=== PATIENT | male | born 1950 | race Caucasian/White ===

== ENCOUNTER 2020-02-18 11:10 | Outpatient (CLI) | payer OTHER, SELFPAY ==
--- NOTE | ~2020-02-18 | CT_ITS ---
EXAMINATION: CT abdomen pelvis wo/w con DATE: 02/18/2020 12:23 INDICATION: Hematuria, unspecified TECHNIQUE: Computed tomography (CT) of the abdomen and pelvis was performed without intravenous contr ast. CT of the abdomen and pelvis was then performed with a total of 130 mL Omnipaque 350 intravenous contrast using a double-bolus technique for simultaneous opacification of the renal parenchyma and r enal collecting system. The dose-length product (DLP) was 3148.92 mGy-cm. Automated exposure control and iterative reconstruction technique were employed. COMPARISON: None FINDINGS: There is mild atelectasis of the visualized lung bases. The heart size is normal. The liver , spleen, pancreas, and adrenal glands are normal. A stone is present in the nondistended gallbladder . Cysts of the kidneys measure up to 1.5 cm on the right and 2.5 cm on the left. No suspicious renal or urothelial lesion is identified. No stones are identified in the kidneys, ureters, or bladder. The re is no hydronephrosis or hydroureter. No pathologically enlarged abdominal or pelvic lymph nodes ar e identified. There is no free intraperitoneal gas or evidence of bowel obstruction. The appendix is normal. There is a fat-containing umbilical hernia. There is mild lumbar spondylosis. IMPRESSION: 1. No suspicious renal or urothelial lesion identified. Reviewed, dictated and finalized at location A.
[2020-02-18 11:54] LABS: Estimated Glomerular Filt Rate 55
== END 2020-02-18 11:11 | disposition home or self-care (01) ==
PROVIDERS: PCP Family Medicine; Visit Provider Family Medicine
DX: N28.1 Cyst of kidney, acquired (principal); R31.9 Hematuria, unspecified
CPT/HCPCS: 36415; 74178; Q9967

== ENCOUNTER 2020-03-11 11:21 | Outpatient (CLI) | payer OTHER, SELFPAY ==
--- NOTE | 2020-03-11 11:24 | ECG_ITS ---
Measurements Intervals [place] Rate: 76 P: 12 [place]: 161 QRS: 30 QRSD: 106 T: 11 QT: 369 QTc: 416 Interpretive Statements SINUS RHYTHM MINIMAL Q WAVES- INFERIOR LEADS BASELINE ARTIFACT- I, II, III, AVR, AVL BORDERLINE ECG Electronically Signed On 03-11-2020 12:36:32 CDT by Emil Willingham D.O.
== END 2020-03-11 11:22 | disposition home or self-care (01) ==
LOC: ANHSURGERY 11:24
PROVIDERS: PCP Family Medicine; Visit Provider Urology
DX: E78.2 Mixed hyperlipidemia (principal); R94.31 Abnormal electrocardiogram [ECG] [EKG]
CPT/HCPCS: 93005

== ENCOUNTER 2020-03-17 00:36 | Outpatient (CLI) | payer OTHER, SELFPAY ==
[2020-03-18 14:41] LABS: SARS-CoV-2 RNA PCR Negative
== END 2020-03-17 00:37 | disposition home or self-care (01) ==
LOC: ANHCOVIDDT 00:36
PROVIDERS: PCP Family Medicine; Visit Provider Urology
DX: Z01.812 Encounter for preprocedural laboratory examination (principal); Z11.59 Encounter for screening for other viral diseases
CPT/HCPCS: 87635; C9803; U0003

== ENCOUNTER 2020-03-19 02:43 | Day surgery (SDC) | payer OTHER, SELFPAY ==
[2020-03-06 15:19] VITALS: BMI 36.3
--- NOTE | 2020-03-13 12:51 | P.HP_ITS ---
History of Present Illness History of Present Illness Consent: Risks, benefits, and alternatives have been discussed and questions answered. Patient agrees to proceed with procedure. Chief complaint: Gross Hematuria Narrative: Gonzalo Norton is a 69 year old male Who recently underwent evaluation for hematuria. A CT scan of the abdomen and pelvis without contrast showed normal upper urinary tracts. 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 He is scheduled for TURBT followed by intravesical mitomycin instillation. Review of Systems Cardiovascular: Cardiovascular: Denies chest pain, Denies lightheadedness, Denies palpitations and Denies dyspnea Respiratory: Respiratory: Denies dyspnea Gastrointestinal: Gastrointestinal: Denies diarrhea, Denies nausea and Denies vomiting Genitourinary: Genitourinary: Denies hematuria and Denies dysuria Endocrine: Endocrine: Denies palpitations PMFSH Past Medical History Medical History Kidney cysts Mixed hyperlipidemia Family History Family History Father Family history of aortic aneurysm Family history of chronic obstructive pulmonary disease Mother Carcinoma of colon Family history of malignant neoplasm of uterus Social History Social History Smoking packs per day: 1.5 Smoking cigarettes per day: 30.0 Years smoked: 20 Smoking pack-years: 30.00 Smoking status: Former smoker Tobacco type: cigarettes Second hand tobacco smoke exposure: No Smoking end date: 08/21/89 Alcohol intake: current Drinks per week: 1 Substance use: never Substance use type: does not use Gender identity (if verbalized by the patient): Male Spiritual care concerns: No Meds Home Medications and Allergies Home Medications Medication Instructions Recorded Confirmed Type rosuvastatin 5 mg PO HS 03/06/20 03/06/20 History Allergies Allergy/AdvReac Type Severity Reaction Status Date / Time niacin AdvReac STOMACH Verified 03/06/20 15:02 CRAMPING Exam Const: General: no acute distress Resp: Effort & Inspection: normal respiratory effort GI: Inspection: non-distended GI Palp: No abdominal tenderness and No Guarding due to palpation present (GI) Auscultation: normal bowel sounds Assessment and Plan Assessment and plan (1) Bladder tumor: Code(s): D49.4 - Neoplasm of unspecified behavior of bladder Status: Acute Assessment and Plan: * TURBT followed by Mitomycin bladder instillation.
--- NOTE | 2020-03-18 09:57 | WPDANESEPPF ---
Anes - Initial Pre Proc Eval Procedure: Operation Date: 03/19/20 09:30 Proposed Procedures p Trans Urethral Resection Bladder Tumor With Mitomycin C Instillation - Morgan Moncada MD Date/Time: 03/18/20 09:57 Surgeon: Morgan Moncada MD Pre Op Diagnosis: Gross Hematuria Patient Data Age: 70 Gender: M Height: 1.8 m Weight: 117.99 kg Allergies Allergy/AdvReac Type Severity Reaction Status Date / Time No Known Allergies Allergy Verified 03/19/20 07:57 Home Medications Medication Instructions Recorded Confirmed Type rosuvastatin 5 mg PO HS 03/06/20 03/19/20 History Patient hx anesthesia problems: none Family hx anesthesia problems: none PMFSH Past Medical History Medical History Kidney cysts Mixed hyperlipidemia Family History Family History Father Family history of aortic aneurysm Family history of chronic obstructive pulmonary disease Mother Carcinoma of colon Family history of malignant neoplasm of uterus Social History Social History Smoking packs per day: 1.5 Smoking cigarettes per day: 30.0 Years smoked: 20 Smoking pack-years: 30.00 Smoking status: Former smoker Tobacco type: cigarettes Second hand tobacco smoke exposure: No Smoking end date: 08/21/89 Alcohol intake: current Drinks per week: 1 Substance use: never Substance use type: does not use Living arrangements: with family Gender identity (if verbalized by the patient): Male Spiritual care concerns: No Anes - Eval Final PreProcedure Day of Procedure 03/18/20 09:57 Patient weight: obese Heart: regular rate and rhythm Lungs: clear to auscultation and normal air movement Airway: Mallampati scale class II Neurological: alert and oriented Last oral intake: >/= 8 hours ASA classification: III Emergent: no Anesthetic plan: proceed Anesthesia type and monitoring: general LMA and standard monitoring Informed Consent: The patient's anesthetic plan and its attendant risks and benefits were discussed with the patient/family/POA. Questions were solicited and answers provided to the satisfaction of the patient/family/POA.
[2020-03-19] VITALS (9 sets, daily range): BP systolic 109–151; BP diastolic 65–97; PULSE 64–88; RESP 10–20; TEMP 36.5–36.6; O2SAT 94–97
--- NOTE | 2020-03-19 06:55 | WPDHPUPDATE1 ---
History and Physical Update Update Date/Time: 03/19/20 06:55 History and Physical has been reviewed, including an updated exam of the patient. There are NO changes in the patient's condition. Risks, benefits, and alternatives have been discussed and questions answered. Patient agrees to proceed with procedure.
[2020-03-19] MEDS: LACTATED RINGERS 1,000 ML 30 ML IV CONT (08:10)
--- NOTE | 2020-03-19 09:49 | PM.PROC ---
Procedure Note - Detailed Date of procedure: 03/19/20 Pre-op diagnosis: Gross Hematuria Post-op diagnosis: same Procedure performed: TURBT (medium, 3-4cm) Description of procedure: The patient was brought to the operative suite where he is prepped and draped in a routine sterile fashion while in the dorsal lithotomy position. This is done after the uneventful administration of systemic sedation. 2% Xylocaine jelly is introduced intraurethrally and allowed to stand for an appropriate period of time. A 24F resectoscope sheath was placed in the bladder and the bladder is circumferentially inspected carefully. He has a single papillary transitional cell carcinoma in the right posterior lateral bladder wall, just lateral to the ureteral orifice. This area is resected in its entirety with an attempt made to include detrusor muscle for pathological evaluation of invasion. The base and periphery of this resected side is cauterized with a loop electrode. This was all done with care to avoid any resection or cautery to the right ureteral orificeThe bladder is emptied and the resectoscope was removed. The patient is taken to the recovery room having tolerated this procedure well. Anesthesia: GLMA Surgeon: Morgan Moncada MD Conference Manager: None Estimated blood loss (mL): 0 Drains: Yes (18F Moser) Packing: No Pathology: yes Complications: No immediate complications Condition: stable Disposition: PACU
[2020-03-19] MEDS: ceFAZolin 3 GM/D5W 100 ML 100 ML IVPB (09:54)
--- NOTE | 2020-03-19 10:28 | PM.PROC ---
Procedure Note - Detailed Date of procedure: 03/19/20 Pre-op diagnosis: Gross Hematuria Post-op diagnosis: same Procedure performed: Mitomycin-C instillation Description of procedure: With the patient in the supine position, a 16F Moser catheter is placed using sterile technique. Using a protective facemask, gown and double layer of gloves Mitomycin 40mg in 50cc saline is administered through the catheter/into the bladder. The catheter is then plugged. Patient was instructed to lie supine x20min, then to roll both the left and right x20 min. each. Total dwell time will be 60 min., after which the bladder will be drained and catheter removed. Anesthesia: local Surgeon: Morgan Moncada MD Estimated blood loss (mL): 0 Drains: Yes (18F Moser) Packing: No Pathology: none sent Complications: No immediate complications Condition: stable Disposition: PACU
--- NOTE | 2020-03-19 11:04 | SUR.PHASEI ---
1030 PT INSTRUCTED ABOUT TURNINGX3 FOR 20 MINUTES AT A TIME. PT OK WITH THIS. PETTY CATH CLAMPED FOR AN HOUR, THEN WILL UNCLAMP TO DRAIN THE BLADDER. AFTER BLADDER DRAINED WILL INSTILL 150ML N/S IN TO BLADDER WITH PETTY IN THEN WILL REMOVE PETTY AND TAKE PT TO OP RECOVERY TO USE THE BATHROOM TO EMPTY BLADDER PER DR BISHOP INSTRUCTIONS.
== END 2020-03-19 12:28 | disposition home or self-care (01) ==
PROVIDERS: PCP Family Medicine; Visit Provider Urology
PROC: 0TBB8ZZ Excision of Bladder, Via Natural or Artificial Opening Endoscopic (ICD-10-PCS; CPT 52235; principal; 2020-03-19 09:30)
DX: C67.2 Malignant neoplasm of lateral wall of bladder (principal); E78.2 Mixed hyperlipidemia; E66.9 Obesity, unspecified; Z68.36 Body mass index [BMI] 36.0-36.9, adult; Z87.891 Personal history of nicotine dependence; Z79.891 Long term (current) use of opiate analgesic; Z79.899 Other long term (current) drug therapy
CPT/HCPCS: 52235; 51720; 87635; 88305; 88307; A9270; C9803; J0690; J1100; J2405; J2704; J3010; J7120; J9280; U0003

== ENCOUNTER 2020-07-27 01:43 | Outpatient (CLI) | payer OTHER, SELFPAY ==
[2020-07-27 18:53] LABS: SARS-CoV-2 RNA PCR Negative
== END 2020-07-27 01:44 | disposition home or self-care (01) ==
LOC: ANHCOVIDDT 01:43
PROVIDERS: PCP Family Medicine; Visit Provider Urology
DX: Z01.818 Encounter for other preprocedural examination (principal); Z20.828 Contact with and (suspected) exposure to other viral communicable diseases
CPT/HCPCS: 87635; C9803; U0003

== ENCOUNTER 2020-07-30 00:37 | Day surgery (SDC) | payer OTHER, SELFPAY ==
[2020-07-23 14:21] VITALS: BMI 37.0
[2020-07-30] VITALS (11 sets, daily range): BP systolic 113–148; BP diastolic 67–98; PULSE 77–92; RESP 12–14; TEMP 36.4–36.7; O2SAT 91–98
--- NOTE | 2020-07-30 06:53 | WPDHPUPDATE1 ---
History and Physical Update Update Date/Time: 07/30/20 06:53 History and Physical has been reviewed, including an updated exam of the patient. There are NO changes in the patient's condition. Risks, benefits, and alternatives have been discussed and questions answered. Patient agrees to proceed with procedure.
--- NOTE | 2020-07-30 08:32 | WPDANESEPPF ---
Anes - Initial Pre Proc Eval Procedure: Operation Date: 07/30/20 10:30 Proposed Procedures p Trans Urethral Resection Bladder Tumor with Mitomycin C - Morgan Moncada MD Date/Time: 07/30/20 08:32 Surgeon: Morgan Moncada MD Pre Op Diagnosis: bladder CA Patient Data Age: 70 Gender: M Height: 5 ft 11 in Weight: 124.3 kg Last Vital Signs Temp 98.1 F 07/30/20 08:20 Pulse 80 07/30/20 08:20 Resp 14 07/30/20 08:20 BP 148/80 H 07/30/20 08:20 Pulse Ox 98 07/30/20 08:20 Allergies Allergy/AdvReac Type Severity Reaction Status Date / Time No Known Allergies Allergy Verified 07/30/20 08:22 Home Medications Medication Instructions Recorded Confirmed Type rosuvastatin 5 mg tablet 5 mg PO HS #90 tablet 06/08/20 07/30/20 Rx Patient hx anesthesia problems: none Family hx anesthesia problems: none PMFSH Past Medical History Medical History (Updated 03/19/20 @ 07:59 by Augusto Boothe DO) Bladder tumor Kidney cysts Mixed hyperlipidemia Family History Family History Father Family history of aortic aneurysm Family history of chronic obstructive pulmonary disease Mother Carcinoma of colon Family history of malignant neoplasm of uterus Social History Social History Smoking packs per day: 1.5 Smoking cigarettes per day: 30.0 Years smoked: 20 Smoking pack-years: 30.00 Smoking status: Former smoker Tobacco type: cigarettes Second hand tobacco smoke exposure: No Smoking end date: 08/21/89 Additional smoking assessment comments: STATES 1 1/2PK/DAY/20YRS/QUIT 1989 Alcohol intake: current Drinks per week: 1 Substance use: never Substance use type: does not use Living arrangements: with family Gender identity (if verbalized by the patient): Male Spiritual care concerns: No Anes - Eval Final PreProcedure Day of Procedure 07/30/20 08:32 Patient weight: obese Heart: regular rate and rhythm Lungs: clear to auscultation Airway: Mallampati scale Last oral intake: >/= 8 hours ASA classification: III Emergent: no Anesthetic plan: proceed Anesthesia type and monitoring: general LMA and standard monitoring Informed Consent: The patient's anesthetic plan and its attendant risks and benefits were discussed with the patient/family/POA. Questions were solicited and answers provided to the satisfaction of the patient/family/POA.
[2020-07-30] MEDS: LACTATED RINGERS 1,000 ML 30 ML IV CONT (08:41)
[2020-07-30] MEDS: ceFAZolin 3 GM/D5W 100 ML 100 ML IVPB (08:56)
[2020-07-30] MEDS: LIDOCAINE HCL 2% GEL UROJET 10 ML PKG MUCOUS MEM (09:13)
--- NOTE | 2020-07-30 09:23 | P.OP_ITS ---
Procedure Note - Detailed Date of procedure: 07/30/20 Pre-op diagnosis: bladder CA Post-op diagnosis: same Procedure performed: TURBT (small, 1-1.5cm) Description of procedure: The patient was brought to the operative suite where [he/she] is prepped and draped in a routine sterile fashion while in the dorsal lithotomy position. This is done after the uneventful administration of a general LMA anesthetic. 2% Xylocaine jelly is introduced intraurethrally and allowed to stand for an appropriate period of time. A 24F resectoscope sheath was placed in the bladder and the bladder is circumferentially inspected carefully. He has a an area of abnormal urothelium in the right posterior- lateral bladder wall that may/may not be a carcinoma. This area is resected in its entirety with an attempt made to include detrusor muscle for pathological evaluation of invasion. The base and periphery of this resected side is cauterized with a loop electrode. The bladder is emptied and the resectoscope was removed. The patient is taken to the recovery room having tolerated this procedure well. Anesthesia: GLMA Surgeon: Morgan Moncada MD Estimated blood loss (mL): 0 Drains: No Packing: No Pathology: yes (Bladder tumor) Complications: No immediate complications Condition: stable Disposition: PACU
--- NOTE | 2020-07-30 09:27 | PM.PROC ---
Procedure Note - Detailed Date of procedure: 07/30/20 Pre-op diagnosis: bladder CA Post-op diagnosis: same Procedure performed: Mitomycin-C instillation Description of procedure: With the patient in the supine position, a 16F Moser catheter is placed using sterile technique. Using a protective facemask, gown and double layer of gloves Mitomycin-C 40mg in 60cc saline is administered through the catheter/into the bladder. The catheter is then plugged. Patient was instructed to lie supine x20min, then to roll both the left and right x20 min. each. Total dwell time will be 60 min., after which the bladder will be drained and catheter removed. Anesthesia: none Surgeon: Morgan Moncada MD Estimated blood loss (mL): 0 Drains: No Packing: No Pathology: none sent Complications: No immediate complications Condition: stable Disposition: PACU
[2020-07-30] MEDS: fentaNYL CITRATE INJ (*CRX) 100 MCG/2 ML VIAL 25 MCG IV PUSH ×2 (10:04→10:07)
--- NOTE | 2020-07-30 14:46 | SUR.PHASEII ---
1100 PT URINATED WITHOUT ISSUE 200 ML
== END 2020-07-30 12:15 | disposition home or self-care (01) ==
PROVIDERS: PCP Family Medicine; Visit Provider Urology
PROC: 0TBB8ZZ Excision of Bladder, Via Natural or Artificial Opening Endoscopic (ICD-10-PCS; CPT 52234; principal; 2020-07-30 10:30)
DX: N30.20 Other chronic cystitis without hematuria (principal); Z85.51 Personal history of malignant neoplasm of bladder; E78.2 Mixed hyperlipidemia; Z87.891 Personal history of nicotine dependence; E66.9 Obesity, unspecified; Z68.38 Body mass index [BMI] 38.0-38.9, adult
CPT/HCPCS: 52234; 51720; 88305; J0690; J2250; J3010; J7120; J9280

== ENCOUNTER 2020-12-08 16:37 | Outpatient (CLI) | payer OTHER, SELFPAY ==
--- NOTE | ~2020-12-08 | XR_ITS ---
EXAMINATION: XR lumbar spine 2-3V DATE: 12/08/2020 16:56 INDICATION: Low back pain. TECHNIQUE: 3 views of lumbar spine were obtained. COMPARISON: CT abdomen and pelvis 02/18/2020 FINDINGS: Bone alignment is normal. Vertebral body heights are normal. There are endplate osteophytes at all levels. Intervertebral disc heights are normal. There is multilevel facet joint osteoarthriti s, severe on the left at L3-L4. IMPRESSION: 1. Mild lumbar spondylosis. Reviewed, dictated and finalized at location B. IMPRESSION: 1. Mild lumbar spondylosis.
== END 2020-12-08 16:38 | disposition home or self-care (01) ==
PROVIDERS: PCP Family Medicine; Visit Provider Family Medicine
DX: M47.816 Spondylosis without myelopathy or radiculopathy, lumbar region (principal)
CPT/HCPCS: 72100

== ENCOUNTER 2022-01-28 00:15 | Day surgery (SDC) | payer OTHER, SELFPAY ==
[2022-01-06 13:03] VITALS: BMI 40.1
[2022-01-28 07:49] VITALS: BP 169/93; PULSE 84; RESP 18; TEMP 36.6; O2SAT 97
[2022-01-28] MEDS: LACTATED RINGERS 1,000 ML 150 ML IV CONT (08:01)
--- NOTE | 2022-01-28 08:25 | P.PNAN_ITS ---
Anes - Initial Pre Proc Eval Procedure: Operation Date: 01/28/22 08:45 Proposed Procedures p Screening Colonoscopy - Isidoro Estevez MD Date/Time: 01/28/22 08:25 Surgeon: Isidoro Estevez MD Pre Op Diagnosis: hx of colon polyps Patient Data Age: 71 Gender: M Height: 1.78 m Weight: 127.3 kg Last Vital Signs Temp 97.8 F 01/28/22 07:49 Pulse 84 01/28/22 07:49 Resp 18 01/28/22 07:49 BP 169/93 H 01/28/22 07:49 Pulse Ox 97 01/28/22 07:49 O2 Del Method Room Air 01/28/22 07:49 Allergies Allergy/AdvReac Type Severity Reaction Status Date / Time No Known Allergies Allergy Verified 01/28/22 07:47 Home Medications Medication Instructions Recorded Confirmed Type rosuvastatin 5 mg tablet 5 mg PO DAILY 01/06/22 01/06/22 History Patient hx anesthesia problems: none Family hx anesthesia problems: none Results Review: All pre-operative results and documents have been reviewed as part of the pre- operative evaluation. [facility] Past Medical History Medical History Bladder cancer Bladder tumor Fatty liver disease, nonalcoholic History of tobacco abuse Kidney cysts Mixed hyperlipidemia Obesity due to excess calories Family History Family History Father Family history of aortic aneurysm Family history of chronic obstructive pulmonary disease Shingles Mother Carcinoma of colon Family history of malignant neoplasm of uterus Social History Social History (Updated 12/20/21 @ 11:03 by Jessica Malcolm) Social History: Smoking packs per day: 1.5 Smoking cigarettes per day: 30.0 Years smoked: 20 Smoking pack-years: 30.00 Smoking status: Former smoker Tobacco type: cigarettes Second hand tobacco smoke exposure: No Smoking end date: 08/21/89 Additional smoking assessment comments: STATES 1 1/2PK/DAY/20YRS/QUIT 1989 Alcohol intake: current Drinks per week: 1 Alcohol use details: 1 drink monthly Substance use: never Substance use type: does not use Living arrangements: with family Gender identity (if verbalized by the patient): Male Sexual Orientation (if Verbalized by the Patient): Straight or Heterosexual Spiritual care concerns: No Anes - Eval Final PreProcedure Day of Procedure 01/28/22 08:25 Patient weight: morbidly obese Heart: regular rate and rhythm Lungs: clear to auscultation Airway: Mallampati scale class III Neurological: alert and oriented Last oral intake: >/= 8 hours ASA classification: III Emergent: no Anesthetic plan: proceed Anesthesia type and monitoring: general GIVS and standard monitoring Results Review: All pre-operative results and documents have been reviewed as part of the pre- operative evaluation. Informed Consent: The patient's anesthetic plan and its attendant risks and benefits were di scussed with the patient/family/POA. Questions were solicited and answers provided to the satisfaction of the patient/family/POA.
--- NOTE | 2022-01-28 08:47 | PM.IMHP ---
H&P: HPI History of Present Illness Date/Time: 01/28/22 08:47 Chief Complaint: History of colon polyps. Narrative: This is a 71-year-old white male patient referred for screening colonoscopy. Patient has a prior history of colon polyps. Previous colonoscopy 2016 and 2011. Patient states that his current weight appetite and bowel movements are normal. He denies abdominal pain. He has had no bleeding. Family history noncontributory. Patient does have a history of bladder cancer diagnosed and treated 2019. Review of Systems Review of Systems: Review of systems noncontributory. [facility] Past Medical History Medical History Bladder cancer Bladder tumor Fatty liver disease, nonalcoholic History of tobacco abuse Kidney cysts Mixed hyperlipidemia Obesity due to excess calories Family History Family History Father Family history of aortic aneurysm Family history of chronic obstructive pulmonary disease Shingles Mother Carcinoma of colon Family history of malignant neoplasm of uterus Social History Social History (Updated 12/20/21 @ 11:03 by Jessica Malcolm) Social History: Smoking packs per day: 1.5 Smoking cigarettes per day: 30.0 Years smoked: 20 Smoking pack-years: 30.00 Smoking status: Former smoker Tobacco type: cigarettes Second hand tobacco smoke exposure: No Smoking end date: 08/21/89 Additional smoking assessment comments: STATES 1 1/2PK/DAY/20YRS/QUIT 1989 Alcohol intake: current Drinks per week: 1 Alcohol use details: 1 drink monthly Substance use: never Substance use type: does not use Living arrangements: with family Gender identity (if verbalized by the patient): Male Sexual Orientation (if Verbalized by the Patient): Straight or Heterosexual Spiritual care concerns: No Meds Home Medications and Allergies Home Medications Medication Instructions Recorded Confirmed Type rosuvastatin 5 mg tablet 5 mg PO DAILY 01/06/22 01/06/22 History Allergies Allergy/AdvReac Type Severity Reaction Status Date / Time No Known Allergies Allergy Verified 01/28/22 07:47 Vital Signs Vital Signs - 24 hr 01/28/22 07:49 Temperature 97.8 F Pulse Rate 84 Respiratory Rate 18 Blood Pressure 169/93 H Pulse Oximetry 97 Oxygen Delivery Room Air Exam Narrative: Physical exam reveals patient to be alert. Vital signs stable. HEENT exam is unremarkable. Patient is anicteric. Lungs are clear to auscultation and percussion. Heart is without murmur or extra sounds. Abdominal exam bowel sounds are present soft nontender with no organomegaly. Digital external rectal exam is normal. Assessment and Plan Assessment and plan (1) History of colon polyps: Code(s): Z86.010 - Personal history of colonic polyps Status: Acute Assessment and Plan: Patient has a prior history of colon polyps. Plan is for continued surveillance colonoscopy. A 5 year intervals. Further recommendations will be given after endoscopy.
[2022-01-28 09:13] VITALS: BP 99/60; PULSE 80; RESP 15; O2SAT 94
[2022-01-28 09:23] VITALS: BP 99/65; PULSE 70; RESP 18; O2SAT 94
[2022-01-28 09:33] VITALS: BP 125/71; PULSE 76; RESP 17; O2SAT 96
== END 2022-01-28 09:44 | disposition home or self-care (01) ==
PROVIDERS: PCP Family Medicine; Visit Provider Internal Medicine Gastroenterology
PROC: 0DJD8ZZ Inspection of Lower Intestinal Tract, Via Natural or Artificial Opening Endoscopic (ICD-10-PCS; CPT 45378; principal; 2022-01-28 08:45)
DX: Z12.11 Encounter for screening for malignant neoplasm of colon (principal); D12.0 Benign neoplasm of cecum; D12.3 Benign neoplasm of transverse colon; K63.5 Polyp of colon; K64.8 Other hemorrhoids; K57.30 Diverticulosis of large intestine without perforation or abscess without bleeding; K76.0 Fatty (change of) liver, not elsewhere classified; N28.1 Cyst of kidney, acquired; E78.2 Mixed hyperlipidemia; Z87.891 Personal history of nicotine dependence; Z85.51 Personal history of malignant neoplasm of bladder; E66.9 Obesity, unspecified; Z68.41 Body mass index [BMI] 40.0-44.9, adult
CPT/HCPCS: 45385; 88305; J2001; J2704; J7120

== ENCOUNTER 2022-08-05 14:22 | Outpatient (CLI) | payer OTHER, SELFPAY ==
--- NOTE | ~2022-08-05 | CT_ITS ---
CT of the Abdomen and Pelvis: Indication: Malignant tumor of urinary bladder Technique: 2.5 mm axial scans were obtained through the abdomen and pelvis prior to and following in travenous administration of 130 cc of Omnipaque 350. Dose reduction technique was used on this scan b y utilizing automated exposure control and iterative reconstruction technique. The dose-length produc t (DLP) was 3036.18 mGy-cm. COMPARISON: 02/18/2020 Findings: Scans through the lung bases are unremarkable. The liver, spleen, pancreas, and adrenal glands are within normal limits. Gallstones are present, unc hanged. Bilateral renal cysts are present. No hydronephrosis. No evidence of aortic aneurysm. No lym phadenopathy. No bowel obstruction or bowel wall thickening. There is no evidence to suggest acute appendicitis. Th ere is sigmoid and descending colonic diverticulosis. Images through the pelvis were performed. Small amount of air in the urinary bladder, which is otherw ise unremarkable. No definite wall thickening or mass lesion appreciated. Prostate gland mildly enlar ged. Impression: No suspicious urinary bladder lesion/mass identified. Small amount of air in the urinary bladder. Cor relate for antigenic air. Cholelithiasis. Reviewed, dictated and finalized at location [] FF COUNSEL Impression: No suspicious urinary bladder lesion/mass identified. Small amount of air in th e urinary bladder. Correlate for antigenic air. Cholelithiasis.
[2022-08-05 15:06] LABS: Estimated Glomerular Filt Rate 60
== END 2022-08-05 14:23 | disposition home or self-care (01) ==
PROVIDERS: PCP Family Medicine; Visit Provider Urology
DX: C67.0 Malignant neoplasm of trigone of bladder (principal); K80.20 Calculus of gallbladder without cholecystitis without obstruction
CPT/HCPCS: 74178; Q9967

== ENCOUNTER 2024-05-01 11:36 | Outpatient (CLI) | payer OTHER, SELFPAY ==
--- NOTE | ~2024-05-01 | XR_ITS ---
AP and lateral views of the left hip Clinical history: Pain Findings: No acute fracture or dislocation is seen. Osseous alignment is anatomic. Left hip joint is preserved. Soft tissues are unremarkable. Impression: No significant abnormality is seen. Reviewed, dictated and finalized at location M. Impression: No significant abnormality is seen.
== END 2024-05-01 11:37 | disposition home or self-care (01) ==
LOC: ANHIMG 11:40
PROVIDERS: PCP Family Medicine; Visit Provider Physician Assistant
DX: M25.552 Pain in left hip (principal)
CPT/HCPCS: 73502

== ENCOUNTER 2024-05-22 07:28 | Outpatient (CLI) | payer OTHER, SELFPAY ==
--- NOTE | ~2024-05-22 | CT_ITS ---
CT of the Abdomen and Pelvis: Indication: Bladder cancer Technique: 2.5 mm axial scans were obtained through the abdomen and pelvis prior to and following in travenous administration of 130 cc of Omnipaque 350. Dose reduction technique was used on this scan b y utilizing automated exposure control and iterative reconstruction technique. The dose-length produc t (DLP) was 2911.94 mGy-cm. COMPARISON: 08/05/2022 Findings: Scans through the lung bases are unremarkable. The liver, spleen, pancreas, and adrenal glands are within normal limits. Bilateral renal cysts prese nt. Probable gallstone present. There are atherosclerotic calcifications of the aorta. No lymphadeno [place]. No bowel obstruction or bowel wall thickening. There is extensive colonic diverticulosis. Small fat-c ontaining umbilical hernia noted. Images through the pelvis were performed. Urinary bladder unremarkable. Prostate gland mildly enlarge d. Impression: No evidence for active malignancy or metastatic disease. Urinary bladder appears unremarkable. Cholelithiasis. Reviewed, dictated and finalized at location M. Impression: No evidence for active malignancy or metastatic disease. Urinary bladder appear s unremarkable. Cholelithiasis.
== END 2024-05-22 07:29 | disposition home or self-care (01) ==
PROVIDERS: PCP Family Medicine; Visit Provider Urology
DX: K80.20 Calculus of gallbladder without cholecystitis without obstruction (principal); C67.0 Malignant neoplasm of trigone of bladder
CPT/HCPCS: 74178; Q9967

== ENCOUNTER 2025-04-28 08:27 | Outpatient (CLI) | payer OTHER, SELFPAY ==
--- NOTE | 2025-04-28 08:34 | ECG_ITS ---
Test Date: 2025-04-28 08:39:11 Measurements Intervals Sherman Rate: 79 P: 56 MA: 172 QRS: 29 QRSD: 105 T: 30 QT: 359 QTc: 412 Interpretive Statements SINUS RHYTHM No previous ECG available for comparison Electronically Signed On 04-28-2025 10:38:41 CDT by Gavino De La Cruz M.D.
== END 2025-04-28 08:28 | disposition home or self-care (01) ==
LOC: ANHSURGERY 08:31
PROVIDERS: PCP Family Medicine; Visit Provider Urology
DX: E78.2 Mixed hyperlipidemia (principal); Z01.818 Encounter for other preprocedural examination
CPT/HCPCS: 93005

== ENCOUNTER 2025-05-08 00:55 | Day surgery (SDC) | payer OTHER, SELFPAY ==
--- NOTE | 2025-04-25 09:37 | PC.NURSE ---
Report to the Outpatient Waiting Room, entrance under the green pavilion located off [facility], at time _11:45 AM on date __05/08/25 . Planned Procedure Time: __1:45 PM .? Time changes happen often and if your time is changed the preop area will call you the afternoon before. - You and your visitor will be asked to self-screen and do not enter if you have any COVID symptoms. Please call surgeon if you need to reschedule. - A mask is optional within the hospital at this time. Patients may have clear liquids (water, carbonated beverages, clear teas, apple juice) until 3 hours prior to surgery( 10:45 AM) with a maximum of 20 ounces. - No food from midnight until time of surgery and no smoking, or chewing tobacco (or any form of nicotine). No chewing gum, candy or mints. - Take only the following medications with a SIP of water on the morning of surgery: NONE DO NOT STOP ANY OF YOUR OTHER PRESCRIPTION MEDICATIONS PRIOR TO SURGERY EXCEPT THE FOLLOWING Hold all vitamins and supplements for 3 days per anesthesiologist. Medications to discontinue per physician NONE Please no make-up, nail dutch, hairspray, perfume, deodorant, or body powder the day of surgery.? No jewelry (including any body piercings) or valuables the day of surgery, leave them at home.? Please take a shower or bath the night before, or the morning of, surgery with an antibacterial soap.? Wear comfortable, loose fitting clothing.? Children are encouraged to wear pajamas. - Jewelry must be removed prior to entering the operating room.? Rings and piercings that are not removed may be cut off. - The hospital will not accept responsibility for valuables.? - Please leave all valuables, including medications, at home the day of surgery. If you are going home after surgery, a licensed driver engineer must drive you home.? - NO public transportation without another adult if you receive anesthesia. - We recommend that an adult stay with you for 24 hours following discharge. - We also recommend that you do not drive, make important decision, drink alcoholic beverages, or take any drugs that were not prescribed by your health care provider for at least 24 hours after your discharge time. For Pediatric surgeries, we recommend two adults accompany the child home. Follow any additional instructions given to you from your surgeon. Telephone instructions given to __PATIENT and asked if any additional questions and then verbalized understanding. Patient advised to call surgeon office or pre surgery nurse liaison [phone] if any additional questions.
[2025-04-25 09:49] VITALS: BMI 38.7
[2025-05-08] VITALS (17 sets, daily range): BP systolic 143–195; BP diastolic 87–111; PULSE 71–94; RESP 14–17; TEMP 36.3–36.9; O2SAT 93–100; BMI 39.4
--- NOTE | ~2025-05-08 | XR_ITS ---
EXAMINATION: XR retrograde pyelogram BI DATE: 05/08/2025 13:38 INDICATION: Bilateral retrograde pyelograms TECHNIQUE: 125 fluoroscopic images of the abdomen and pelvis were obtained during procedure performed by Dr. Moncada. Radiologist was not present for the imaging or procedure. The amount of fluoroscopy time used during this procedure was 2.2 minutes. Total DAP was 4.97 mGym^2. COMPARISON: CT dated 05/22/2024 FINDINGS: There is retrograde contrast injection into the bilateral ureters and renal collecting systems, both which appear normal with no evident filling defects or urothelial irregularities. IMPRESSION: 1. Normal bilateral retrograde pyelograms. See procedure note for further detail. Reviewed, dictated and finalized at location A. IMPRESSION: 1. Normal bilateral retrograde pyelograms. See procedure note for further detjay burns
--- NOTE | 2025-05-08 05:57 | WPDHPUPDATE1 ---
History and Physical Update Update Date/Time: 05/08/25 05:57 History and Physical has been reviewed, including an updated exam of the patient. There are NO changes in the patient's condition. Risks, benefits, and alternatives have been discussed and questions answered. Patient agrees to proceed with procedure.
[2025-05-08] MEDS: LACTATED RINGERS 1,000 ML 30 ML IV CONT ×2 (11:45→13:48)
--- NOTE | 2025-05-08 12:50 | WPDANESEPPF ---
Anes - Initial Pre Proc Eval Procedure: Operation Date: 05/08/25 13:15 Proposed Procedures p Cystoscopy with Bladder Biopsy, Bilateral Retrograde Pyelogram with Selective Catherization of Ureter Bilaterally - Morgan Moncada MD Date/Time: 05/08/25 12:50 Surgeon: Morgan Moncada MD Pre Op Diagnosis: Bladder Ca Patient Data Age: 75 Gender: M Height: 1.78 m Weight: 124.5 kg Last Vital Signs Temp 98.4 F 05/08/25 11:55 Pulse 79 05/08/25 11:55 Resp 16 05/08/25 11:55 BP 143/87 H 05/08/25 11:55 Pulse Ox 96 05/08/25 11:55 Allergies Allergy/AdvReac Type Severity Reaction Status Date / Time No Known Allergies Allergy Verified 05/08/25 11:52 Home Medications ?Medication ?Instructions ?Recorded ?Confirmed ?Type rosuvastatin 5 mg tablet See Rx Instructions .Route 06/19/24 05/08/25 Rx .COMPLEX #90 tabs Patient hx anesthesia problems: none Family hx anesthesia problems: none Results Review: All pre-operative results and documents have been reviewed as part of the pre-operative evaluation. [facility] Past Medical History Medical History Colon cancer screening Skin lesion Obesity due to excess calories History of tobacco abuse BMI 36.0-36.9,adult Lumbar back sprain Bladder cancer Fatty liver disease, nonalcoholic Lumbar pain Bladder tumor BMI 37.0-37.9, adult Hematuria Kidney cysts Mixed hyperlipidemia Family History Family History Father Family history of aortic aneurysm Family history of chronic obstructive pulmonary disease Shingles Mother Carcinoma of colon Family history of malignant neoplasm of uterus Social History Social History Social History: Smoking packs per day: 1.5 Smoking cigarettes per day: 30.0 Years smoked: 20 Smoking pack-years: 30.00 Smoking status: Former smoker Tobacco type: cigarettes Second hand tobacco smoke exposure: No Smoking end date: 08/21/89 Additional smoking assessment comments: STATES 1 1/2PK/DAY/20YRS/QUIT 1989 Alcohol intake: current Alcohol use details: ONE DRINK/MONTH Substance use: never Substance use type: does not use Do You Feel Safe in your Home?: Yes Lack of Transportation: No Lack of Food: Never True Current Housing: I Have Housing Concerned About Future Housing: No Difficulty Paying Gas/Electric Bills: No Difficulty Paying for Meds: No Currently Unemployed: YES Education: High School Diploma/GED Difficulty w/ Childcare or Family Care: No Living arrangements: with family Occupation/Education: retired Gender identity (if verbalized by the patient): Male Sexual Orientation (if Verbalized by the Patient): Straight or Heterosexual Spiritual care concerns: No Anes - Eval Final PreProcedure Day of Procedure 05/08/25 12:50 Patient weight: obese Lungs: normal air movement Airway: Mallampati scale class II Neurological: alert and oriented Last oral intake: >/= 8 hours ASA classification: III Emergent: no Anesthetic plan: proceed Anesthesia type and monitoring: general GIVS and standard monitoring Results Review: All pre-operative results and documents have been reviewed as part of the pre-operative evaluation. Hyperlipidemia, ex smoker, quit 1990s. 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 Informed Consent: The patient's anesthetic plan and its attendant risks and benefits were discussed with the patient/family/POA. Questions were solicited and answers provided to the satisfaction of the patient/family/POA.
[2025-05-08] MEDS: ceFAZolin 3 GM/D5W 100 ML 100 ML IVPB (12:58)
[2025-05-08] MEDS: LIDOCAINE 2% GEL UROJET 10 ML PKG MUCOUS MEM (13:12)
--- NOTE | 2025-05-08 13:33 | S_PTH ---
PATIENT: Gonzalo Norton LOC: [facility] U#:[id number] AGE/SX: 75/M ROOM: RE05/08/[address]: Morgan Moncada MD : 1950 BED: DIS: 05/08/2025 SPEC #: [id number] RECD: 05/08/25 14:07 STATUS: VALERIO RE #: [id number] KELSEY: 05/08/25 13:[address]: Morgan Moncada DEPT: [facility] Surgical RECD BY: Debora Rosas ENTERED: 05/08/25 14:09 SP TYPE: Surgical OTHR DR: Francois Christianson MD Tissues: A - Bladder Biopsy B - Urine C - Urine D - Urine Procedures: Hematoxylin and Eosin Stain Gross and Microscopic Level 4 Cytopathology Cytospin
--- NOTE | 2025-05-08 14:02 | W.PM.PROC2 ---
Procedure Note - Detailed Date of Procedure 05/08/25 Pre-op Diagnosis History of bladder cancer, persistent abnormal urine cytology Post-op Diagnosis Same Procedure Performed Cystoscopy, bilateral retrograde pyelography, bilateral ureteroscopy, bladder biopsy Surgeon Morgan Moncada MD Anesthesia General Findings 1. Diffuse/patchy bladder mucosal hyperemia 2. Normal bilateral retrograde pyelogram 3. Normal bilateral ureteroscopy Description of Procedure Patient is brought to the operative suite was prepped draped in routine sterile fashion while in dorsal lithotomy position after the uneventful induction of a general LMA anesthetic. Cystoscopy was undertaken with a 19 F rigid cystoscope. He is a 2.5 cm prostatic urethra with predominantly lateral lobe enlargement. Bladder mucosa shows diffuse patchy hyperemia that appears consistent with an inflammatory process in less typical for carcinoma in Situ. Has a single orthotopic ureteral orifice. Upper tract evaluation was undertaken in an identical fashion bilaterally. A 0.035 in glidewire was advanced into the renal pelvis grew over which a angiographic catheter was advanced. Bilateral renal pelvic washes were obtained using separate ureteral catheters. Mobile retrograde pyelography with separate ureteral catheter showed very thin ureters bilaterally without filling defects, points of obstruction or hydronephrosis. I dilated each distal ureter with an 8 F 10 F dilator. Because of the narrow caliber of his ureters I was unable to pass UA 7.5 F flexible ureteral scope beyond the iliac vessels. The distal ureteroscopy on both sides was perfectly normal. Having completed upper tract evaluation I obtained a bladder biopsy from 2 sites involved by this hyperemia process. Based on cup periphery was cauterized with a Bugbee electrode. Drains No Packing No Pathology Yes Complications No immediate complications Condition Stable
[2025-05-08] MEDS: oxyCODONE HCL (*CRX) 5 MG TAB IR PO (15:30)
[2025-05-08] MEDS: fentaNYL CITRATE INJ (*CRX) 100 MCG/2 ML VIAL 25 MCG IV PUSH ×4 (15:42→17:04)
[2025-05-08] MEDS: HYOSCYAMINE SULFATE 0.125 MG TABLET PO (16:10)
[2025-05-08] MEDS: KETOROLAC 30 MG/ML VIAL (*BKC) IV PUSH (17:03)
== END 2025-05-08 17:45 | disposition home or self-care (01) ==
PROVIDERS: PCP Family Medicine; Visit Provider Urology
PROC: (CPT 52352; principal; 2025-05-08 13:15)
DX: Z08 Encounter for follow-up examination after completed treatment for malignant neoplasm (principal); N30.20 Other chronic cystitis without hematuria; N32.89 Other specified disorders of bladder; N40.0 Benign prostatic hyperplasia without lower urinary tract symptoms; E78.2 Mixed hyperlipidemia; R30.0 Dysuria; E66.9 Obesity, unspecified; Z68.39 Body mass index [BMI] 39.0-39.9, adult; Z98.890 Other specified postprocedural states; Z87.891 Personal history of nicotine dependence; Z85.51 Personal history of malignant neoplasm of bladder; Z80.0 Family history of malignant neoplasm of digestive organs; Z80.49 Family history of malignant neoplasm of other genital organs
CPT/HCPCS: 52204; 52351; 74420; 88108; 88305; A9270; C1758; C1769; J0690; J1885; J2003; J2405; J2704; J3010; J7120; Q9966

== ENCOUNTER 2025-05-09 15:26 | Inpatient (IN) | payer OTHER, SELFPAY ==
--- NOTE | ~2025-05-09 | CT_ITS ---
EXAMINATION: CT abdomen pelvis wo con DATE: 05/09/2025 18:27 INDICATION: Bladder cancer. TECHNIQUE: Computed tomography (CT) of the abdomen and pelvis was performed without intravenous contrast. Automated exposure control and iterative reconstruction technique were employed. The dose-length product was 1502.84 mGy-cm. COMPARISON: CT abdomen and pelvis 05/22/2024, retrograde pyelogram 05/08/2025 FINDINGS: The visualized portions of lung bases demonstrate mild atelectasis. There is a 3 mm nodule in right lower lobe, likely benign. No pleural effusion. The heart size is normal. No pericardial effusion. There is diffuse hepatic steatosis. There are gallstones and contrast in the gallbladder, which is normal in size. The spleen, pancreas, and adrenal glands are normal. There are cysts in the kidneys measuring up to 2.8 cm on the left. There is contrast and gas in the ureters and bladder. There is extraluminal gas adjacent to the left renal pelvis. There is fat stranding and fluid and contrast in the left perinephric space. There is diverticulosis of the colon without evidence of diverticulitis. There are no dilated loops of bowel. The appendix is normal. There are no pathologically enlarged lymph nodes. There is no free intraperitoneal fluid. There are bridging endplate osteophytes at multiple levels in the spine, consistent with diffuse idiopathic skeletal hyperostosis (DISH). There is mod erate lumbar spondylosis. IMPRESSION: 1. Extraluminal gas adjacent to the left renal pelvis with fat stranding and fluid and contrast in the left perinephric space, consistent with left ureteral perforation. Reviewed, dictated and finalized at location E. IMPRESSION: 1. Extraluminal gas adjacent to the left renal pelvis with fat stranding and fl uid and contrast in the left perinephric space, consistent with left ureteral p erforation.
--- NOTE | ~2025-05-09 | XR_ITS ---
EXAMINATION: XR retrograde pyelo w/stent BI DATE: 05/10/2025 09:32 INDICATION: Bilateral internal ureteral stent placement TECHNIQUE: 4 fluoroscopic images of the abdomen and pelvis were obtained during procedure performed by Dr. Alicja quarles. Radiologist was not present for the imaging or procedure. The amount of fluoroscopy time used during this procedure was 0.7 minutes. Total DAP was 1.27 mGym^2. COMPARISON: CT dated 05/09/25 FINDINGS: No evident urolithiasis on the equity director images. Subsequent images demonstrate retrograde contrast injection into the bilateral renal collecting systems which appear unremarkable. The right internal ureteral stent has been placed with proximal loop formed in the right renal pelvis. A catheter is seen extending to the right ureteropelvic junction on the final image. IMPRESSION: 1. Fluoroscopy utilized during bilateral internal ureteral stent placement. See procedure note for further detail. Reviewed, dictated and finalized at location A.
[2025-05-09 15:28] VITALS: BP 142/73; PULSE 85; RESP 16; TEMP 36.4; O2SAT 97
[2025-05-09 15:55] VITALS: BP 165/93; PULSE 83; RESP 18; O2SAT 96
--- NOTE | 2025-05-09 16:17 | ED.MALEGU ---
HPI - Male Genitourinary General Chief complaint: Urogenital-Male Stated complaint: surgery with Dr Moncada yesterday-unable to urinate Time Seen by Provider: 05/09/25 16:10 Source: patient Mode of arrival: ambulatory Limitations: no limitations History of Present Illness HPI Narrative: Patient is status post cystoscopy, bilateral retrograde pyelography, bilateral ureteroscopy, bladder biopsy yesterday. Patient report that he been passing blood clots since yesterday, no urine. His pain level is 1-2/10 which is not bothering him at this time. He denies any fever, chills, nausea, vomiting, abdominal pain. Referred to our emergency room by his urologist office for evaluation Related Data Allergies Allergy/AdvReac Type Severity Reaction Status Date / Time No Known Allergies Allergy Verified 05/09/25 23:36 Review of Systems Review of Systems: All systems reviewed & are unremarkable except as noted in HPI and below PMFSH Past Medical History Medical History Colon cancer screening Skin lesion Obesity due to excess calories History of tobacco abuse BMI 36.0-36.9,adult Lumbar back sprain Bladder cancer Fatty liver disease, nonalcoholic Lumbar pain Bladder tumor BMI 37.0-37.9, adult Hematuria Kidney cysts Mixed hyperlipidemia Surgical History Surgical History H/O transurethral resection of prostate H/O cystoscopy Multiple History of colonoscopy with polypectomy Family History Family History Father Family history of aortic aneurysm Family history of chronic obstructive pulmonary disease Shingles Mother Carcinoma of colon Family history of malignant neoplasm of uterus Social History Social History Social History: and he had 2 children. One son has . He is retired from [employer]. Code status: Full code Smoking packs per day: 2 Smoking cigarettes per day: 40.0 Years smoked: 20 Smoking pack-years: 40.00 Smoking status: Former smoker Tobacco type: cigarettes Second hand tobacco smoke exposure: No Smoking end date: 04/21/90 Additional smoking assessment comments: STATES 1 1/2PK/DAY/20YRS/QUIT 1989 Alcohol intake: current Drinks per week: 1 Alcohol use details: ONE DRINK/MONTH Substance use: never Substance use type: does not use Do You Feel Safe in your Home?: Yes Lack of Transportation: No Lack of Food: Never True Current Housing: I Have Housing Concerned About Future Housing: No Difficulty Paying Gas/Electric Bills: No Difficulty Paying for Meds: No Currently Unemployed: No Education: High School Diploma/GED Difficulty w/ Childcare or Family Care: YES Living arrangements: with family Occupation/Education: retired Gender identity (if verbalized by the patient): Male Sexual Orientation (if Verbalized by the Patient): Straight or Heterosexual Spiritual care concerns: No Exam Narrative: General appearance: Well-developed, well-nourished Skin: Normal color Head: Normocephalic, nontraumatic Eyes: Clear conjunctiva ENT: Oropharynx normal, ears normal, nose normal Neck: Supple, nontender Chest and respiratory: Airway patent, no respiratory distress, no accessory muscle use Heart: Regular rate/rhythm Abdomen: Soft, nontender, no organomegaly, quiet bowel sounds Vascular: Normal peripheral pulses, normal capillary refill. Musculoskeletal: Normal range of motion, nontender back Neurologic: Alert and oriented ?3, CORPORATION OFFICER is normal as tested, no gross motor deficit Course Vital Signs Vital signs: Vital Signs Temperature 36.4 C 05/09/25 15:28 Pulse Rate 85 05/09/25 15:28 Respiratory Rate 16 05/09/25 15:28 Blood Pressure 142/73 H 05/09/25 15:28 Pulse Oximetry 97 05/09/25 15:28 Oxygen Delivery Room Air 05/09/25 15:28 Temperature 36.6 C 05/11/25 06:23 Pulse Rate 83 05/11/25 06:23 Respiratory Rate 14 05/11/25 06:23 Blood Pressure 126/68 05/11/25 08:45 Pulse Oximetry 95 05/11/25 06:23 Oxygen Delivery Room Air 05/11/25 09:15 Oxygen Flow Rate 10 05/10/25 09:55 MDM - Male Genitourinary MDM Narrative Medical decision making narrative: Status post urology procedure yesterday with urethral bleeding Vital signs are stable Physical examination insignificant Differential diagnosis expected post urology procedure bleeding, retention, infection Blood workup today includes CBC, CMP showed Urinalysis showed Bladder scan showed Differential Diagnosis Differential diagnosis: Likely other (As above) Medical Records Attestation: I reviewed the patient's medical records. Lab Data Attestation: I reviewed the patient's lab results. 05/11/25 06:40 05/11/25 06:40 Labs: Lab Results 05/09/25 05/10/25 Range/Units 17:05 06:10 WBC 10.8 H 12.7 H (4.5-10.0) K/mm3 RBC 5.18 4.88 (4.6-6.20) M/mm3 Hgb 14.9 14.2 (14.0-18.0) g/dL Hct 45.6 43.3 (42.0-52.0) % MCV 88.0 88.7 (80-100) fl MCH 28.8 29.1 (26-34) pg MCHC 32.7 32.8 (32-36) g/dl RDW 13.8 13.8 (11.5-14.5) % Plt Count 165 153 (150-375) k/mm3 MPV 9.4 9.5 (7.4-10.4) fl Immature Gran % (Auto) 0.3 0.4 (0-0.5) % Neut % (Auto) 80.7 H 84.7 H (45.5-73.1) % Lymph % (Auto) 11.3 L 8.1 L (18.3-44.2) % Amelia % (Auto) 7.1 6.4 (2.6-8.5) % Eos % (Auto) 0.4 0.2 (0-4.4) % Baso % (Auto) 0.2 0.2 (0.2-1.2) % Lymph # (Auto) 1.22 1.03 (0.9-3.2) K/mm3 Amelia # (Auto) 0.8 H 0.8 H (0.1-0.6) K/mm3 Eos # (Auto) 0.0 0.0 (0-0.3) K/mm3 Baso # (Auto) 0.0 0.0 (0.0-0.1) K/mm3 Abs Immat Gran (auto) 0.03 0.05 H (0.00-0.031) K/mm3 Absolute Neuts (auto) 8.7 H 10.7 H (1.3-6.7) K/mm3 Absolute Nucleated RBC 0.000 0.000 (0.0-0.012) K/mm3 Nucleated RBC % 0.0 0.0 (0.0-0.2) % Sodium 135 L 133 L (137-145) mmol/L Potassium 4.6 4.9 (3.4-5.0) mmol/L Chloride 100 102 (98-107) mmol/L Carbon Dioxide 25 18 L (22-30) mmol/L Anion Gap 10 13 H (4-12) mmol/L BUN 38 H 45 H (9-20) mg/dL Creatinine 4.82 H 6.19 H (0.7-1.3) mg/dL Estim Creat Clear Calc 16 13 ml/min Estimated GFR 12 L 9 L (59 - ) Glucose 108 116 H (65-110) mg/dL Calcium 8.8 8.3 L (8.4-10.2) mg/dL Total Bilirubin 1.2 (0.2-1.3) mg/dL AST 26 (17-59) U/L ALT 13 (6-50) U/L Alkaline Phosphatase 74 (38-126) U/L Total Protein 7.6 (6.3-8.2) g/dL Albumin 4.1 (3.5-5.1) g/dL Imaging Data Radiologist's impression: CT ABDOMEN AND PELVIS WITHOUT IV CONTRAST SHOWED MILD BILATERAL HYDROURETERONEPHROSIS. NONSPECIFIC HYPERDENSE MATERIAL IN THE MID LEFT URETER QUESTIONABLE EXIT CREATING CONTRAST MATERIAL VERSUS STONES OR DEBRIS GAS FOCI ALONG THE ANTERIOR ASPECT OF THE LEFT RENAL HIM FLORIAN IS POSSIBLE OUTSIDE THE RENAL COLLECTING SYSTEM. RAISING CONCERN FOR PERFORATION LEFT GREATER THAN RIGHT EMI NEPHRIC FAT STRANDING WITH PROBABLE SMALL AMOUNT OF LEFT PERINEPHRIC BLOOD UNDER DISTENDED BLADDER LIMITS EVALUATION SURROUNDING FAT STRANDING COULD BE SECONDARY TO CYSTITIS PLEASE CORRELATE WITH URINALYSIS SMALL GAS FOCI IN THE BLADDER COULD BE RELATED TO CYSTITIS VERSUS RECENT MANIPULATION. Critical Care Time Critical Care Time Critical Care Time: No Discharge Plan Discharge Clinical Impression: HENOK (acute kidney injury), Hematuria Patient Disposition: Still a Patient Condition: Stable
[2025-05-09 16:45] VITALS: BP 145/91; PULSE 76; RESP 18; O2SAT 93
[2025-05-09 17:15] VITALS: BP 132/92; PULSE 81; O2SAT 93
[2025-05-09 17:15] LABS: Hematocrit 45.6 % (42.0-52.0); Hemoglobin 14.9 g/dL (14.0-18.0); Immature Granulocyte Percent A 0.3 % (0-0.5); Lymphocytes Absolute Auto 1.22 K/mm3 (0.9-3.2); Mean Corpuscular HGB Conc 32.7 g/dl (32-36); Mean Corpuscular Hemoglobin 28.8 pg (26-34); Mean Corpuscular Volume 88.0 fl (80-100); Nucleated Red Blood Cells Absolute Auto 0.000 K/mm3 (0.0-0.012); Nucleated Red Blood Cells Perc 0.0 % (0.0-0.2); Platelet Count Result 165 k/mm3 (150-375); Red Blood Count 5.18 M/mm3 (4.6-6.20); White Blood Count 10.8 K/mm3 (4.5-10.0)
[2025-05-09 17:27] LABS: Alanine Aminotransferase 13 U/L (6-50); Albumin Level 4.1 g/dL (3.5-5.1); Alkaline Phosphatase 74 U/L (38-126); Anion Gap 10 mmol/L (4-12); Aspartate Amino Transferase 26 U/L (17-59); Bilirubin,Total 1.2 mg/dL (0.2-1.3); Blood Urea Nitrogen 38 mg/dL (9-20); Calcium 8.8 mg/dL (8.4-10.2); Carbon Dioxide 25 mmol/L (22-30); Chloride 100 mmol/L (98-107); Estimated CRCL calculation 16 ml/min; Estimated Glomerular Filt Rate 12; Glucose 108 mg/dL (65-110); Potassium 4.6 mmol/L (3.4-5.0); Sodium 135 mmol/L (137-145); Total Protein 7.6 g/dL (6.3-8.2)
[2025-05-09 18:00] VITALS: BP 143/88; PULSE 85; RESP 18; O2SAT 94
[2025-05-09] MEDS: SODIUM CHLORIDE 0.9% IV 1,000 ML 999 ML IV CONT (18:13)
[2025-05-09] MEDS: MORPHINE SULFATE (*CRX) 4 MG/ML INJ IV PUSH (21:06)
[2025-05-09] MEDS: ONDANSETRON INJ 4 MG/2 ML VIAL IV PUSH (21:07)
[2025-05-09 21:10] VITALS: BP 165/86; PULSE 90; RESP 18; TEMP 36.8; O2SAT 97
[2025-05-09] MEDS: cefTRIAXone 1 GM in SODIUM CHLORIDE 0.9% IV 50 ML 100 ML IVPB (22:43)
[2025-05-09] MEDS: SODIUM CHLORIDE 0.9% IV 1,000 ML 125 ML IV CONT (22:44)
[2025-05-09] MEDS: HYDROmorphone HCL INJ (*CRX) 1 MG/ML SYR 0.5 MG IV PUSH (22:52)
[2025-05-09 23:17] VITALS: BMI 39.8
[2025-05-10] VITALS (14 sets, daily range): BP systolic 92–149; BP diastolic 59–81; PULSE 86–103; RESP 14–20; TEMP 36.3–36.5; O2SAT 93–99
--- NOTE | 2025-05-10 02:35 | PM.IMHP ---
H&P: HPI History of Present Illness Date/Time: 05/10/25 02:35 Chief Complaint: Unable to urinate Narrative: This is a 75-year-old male patient with a history of bladder cancer. The patient has had a TURP and 2020 and has had some atypical cytology with his most recent cystoscopies. On 05/08/25 the patient underwent a cystoscopy, bilateral retrograde pyelogram, bilateral ureteroscopy, bladder biopsy. The patient stated that he noticed a large amount of blood after the procedure. He also notes that he is passing a lot of clots the day after. The patient stated that his kidneys are hurting him. He denied any fever, chills, nausea, or vomiting. The patient stated that he was not able to urinate. The patient was referred to the emergency room by his urologist for further evaluation. The patient had a CT abdomen and pelvis without contrast which was read as mild bilateral hydro ureteral nephrosis. Nonspecific hyperdense material in the mid left ureter. Question excreting contrast material versus stones or debris. Gas in the renal collecting system bilaterally which may be secondary to recent procedure. Gas foci along the anterior aspect of the left renal hilum is possibly outside of the renal collecting system, raising concern for perforation. Left greater than right perinephritic fat stranding with probable small amount of left perinephritic blood. Small bilateral renal cysts. Mild hepatomegaly. Lower lung atelectasis. Cholelithiasis. Diverticulosis without evidence of diverticulitis. No small bowel obstruction. Prostatomegaly. Urology has been consulted. A Moser catheter was placed while in the emergency room and only a small amount of blood was noted in the Moser bag. The patient was started on ceftriaxone, Zofran, IV fluids, and dilaudid. His white count was noted to be 10.8. Neutrophils 80.7. Sodium was slightly low at 135. His BUN was 38 creatinine 4.82. GFR is 12. The patient is being admitted to observation status on the date of service of 05/10/2025. Review of Systems Constitutional: Constitutional: Reports as per HPI and Reports no additional constitutional complaints Eyes: Eyes: Reports as per HPI and Reports no additional eye complaints ENT: Reports system reviewed and no additional complaints, except as documented and Reports Normal hearing present Cardiovascular: Cardiovascular: Reports no additional cardiovascular complaints Respiratory: Respiratory: Reports as per HPI and Reports no additional respiratory complaints Gastrointestinal: Gastrointestinal: Reports as per HPI and Reports no additional gastrointestinal complaints Musculoskeletal: Musculoskeletal: Reports no additional musculoskeletal complaints Integumentary/Breasts: Skin/Breast: Reports system reviewed and no additional complaints, except as docu Neurologic: Reports system reviewed and no additional complaints, except as documented and Reports Normal hearing present Psychiatric: Psychiatric: Reports no additional psychiatric complaints and Reports as per HPI Hematologic/Lymphatic: Hematologic/Lymphatic: Reports no additional hematologic/lymphatic complaints Allergic/Immunologic: Allergic/Immunologic: Reports no additional allergic/immunologic complaints [facility] Past Medical History Medical History Colon cancer screening Skin lesion Obesity due to excess calories History of tobacco abuse BMI 36.0-36.9,adult Lumbar back sprain Bladder cancer Fatty liver disease, nonalcoholic Lumbar pain Bladder tumor BMI 37.0-37.9, adult Hematuria Kidney cysts Mixed hyperlipidemia Surgical History Surgical History H/O transurethral resection of prostate H/O cystoscopy Multiple History of colonoscopy with polypectomy Family History Family History Father Family history of aortic aneurysm Family history of chronic obstructive pulmonary disease Shingles Mother Carcinoma of colon Family history of malignant neoplasm of uterus Social History Social History Social History: and he had 2 children. One son has . He is retired from [employer]. Code status: Full code Smoking packs per day: 2 Smoking cigarettes per day: 40.0 Years smoked: 20 Smoking pack-years: 40.00 Smoking status: Former smoker Tobacco type: cigarettes Second hand tobacco smoke exposure: No Smoking end date: 04/21/90 Additional smoking assessment comments: STATES 1 1/2PK/DAY/20YRS/QUIT 1989 Alcohol intake: current Drinks per week: 1 Alcohol use details: ONE DRINK/MONTH Substance use: never Substance use type: does not use Do You Feel Safe in your Home?: Yes Lack of Transportation: No Lack of Food: Never True Current Housing: I Have Housing Concerned About Future Housing: No Difficulty Paying Gas/Electric Bills: No Difficulty Paying for Meds: No Currently Unemployed: No Education: High School Diploma/GED Difficulty w/ Childcare or Family Care: YES Living arrangements: with family Occupation/Education: retired Gender identity (if verbalized by the patient): Male Sexual Orientation (if Verbalized by the Patient): Straight or Heterosexual Spiritual care concerns: No Meds Home Medications and Allergies Home Medications ?Medication ?Instructions ?Recorded ?Confirmed ?Type rosuvastatin 5 mg tablet See Rx Instructions .Route 06/19/24 05/09/25 Rx .COMPLEX #90 tabs hydrocodone 5 mg-acetaminophen 325 1 - 2 tablet PO Q6H PRN pain #20 05/08/25 05/09/25 Rx mg tablet tabs Allergies Allergy/AdvReac Type Severity Reaction Status Date / Time No Known Allergies Allergy Verified 05/09/25 23:36 Vital Signs Vital Signs - 24 hr 05/09/25 15:28 05/09/25 15:55 05/09/25 16:45 Temperature 97.6 F Pulse Rate 85 83 76 Respiratory Rate 16 18 18 Blood Pressure 142/73 H 165/93 H 145/91 H Pulse Oximetry 97 96 93 Oxygen Delivery Room Air 05/09/25 17:15 05/09/25 18:00 05/09/25 21:10 Temperature 98.2 F Pulse Rate 81 85 90 Respiratory Rate 18 18 Blood Pressure 132/92 H 143/88 H 165/86 H Pulse Oximetry 93 94 97 Oxygen Delivery 05/10/25 02:17 Temperature 97.4 F L Pulse Rate 90 Respiratory Rate 20 Blood Pressure 149/75 H Pulse Oximetry 95 Oxygen Delivery Exam Const: General: cooperative, healthy appearing, no acute distress, well developed, awake, Physically active, average body habitus and well nourished Nutritional Appearance: average body habitus and well nourished Orientation/consciousness: oriented to person, oriented to place, oriented to time and patient oriented x3 Limitations: no limitations HENMT: Head: normal to inspection, No palpable skull fracture present, normocephalic, atraumatic and abrasion Ears: hearing grossly normal bilaterally and external ears normal Eyes: General: appearance normal, both eyes and all related structures Alignment and Position: alignment normal Periorbital: periorbital findings normal Eyelids: eyelids normal Neck: Neck: normal visual inspection, full ROM, no lymphadenopathy and supple Chest: Chest palpation & inspection: normal inspection of the chest Resp: Effort & Inspection: normal respiratory effort Auscultation: clear to auscultation bilaterally Cardio: Palpation: normal PMI Rate: regular rate Rhythm: regular rhythm Heart sounds: S1 normal heart sound present and S2 normal heart sound present Peripheral pulses: Peripheral pulses 2+ throughout GI: Inspection: normal to inspection Percussion: Yes normal to percussion Auscultation: normal bowel sounds Urinary Catheter: Urinary Catheter: other (Small amount of blood possibly 20 cc in the Moser catheter. Otherwise no drainage is noted in the catheter.) Back/Spine/Pelvis: Back: no CVA tenderness Cervical Spine: cervical ROM normal Skin: General skin exam: normal color Lesions: no lesions Rashes: no rashes Trauma: no lacerations or abrasions Wounds: no wounds Hair: normal Nails: normal Neuro: General: oriented to person, oriented to place, oriented to time and patient oriented x3 Cranial nerves: Yes Equal, round and reactive pupils present and Yes Normal hearing present Cognition (Neuro): normal cognition Speech: normal speech Gait exam (Neuro): Normal gait present Motor exam (neuro): 5/5 motor strength present throughout Sensory Exam: normal sensation Extrem: General: normal to inspection Right upper extremity: normal to inspection and shoulder/upper arm Left upper extremity: normal to inspection and shoulder/upper arm Right lower extremity: normal to inspection Left lower extremity: normal to inspection Psych: Appearance: grossly normal Mental Status: mental status grossly normal Speech and movement: Normal speech and movement present Affect: normal affect Attitude: cooperative Thought process: Normal thought process present Thought content: Yes Normal thought content present Insight: Good insight present (Psych) Judgement: Good judgement present (Psych) H&P: Results Labs Labs: Short CBC 05/09/25 Range/Units 17:05 WBC 10.8 H (4.5-10.0) K/mm3 Hgb 14.9 (14.0-18.0) g/dL Hct 45.6 (42.0-52.0) % Plt Count 165 (150-375) k/mm3 BMP 05/09/25 17:05 Sodium 135 L Potassium 4.6 Chloride 100 Carbon Dioxide 25 BUN 38 H Creatinine 4.82 H Glucose 108 Calcium 8.8 Liver Function 05/09/25 Range/Units 17:05 Total Bilirubin 1.2 (0.2-1.3) mg/dL AST 26 (17-59) U/L ALT 13 (6-50) U/L Alkaline Phosphatase 74 (38-126) U/L Albumin 4.1 (3.5-5.1) g/dL Imaging CT scan - abdomen: Radiologist's impression: Preliminary CT CT ABDOMEN AND PELVIS WITHOUT IV CONTRAST SHOWED MILD BILATERAL HYDROURETERONEPHROSIS. NONSPECIFIC HYPERDENSE MATERIAL IN THE MID LEFT URETER QUESTIONABLE EXIT CREATING CONTRAST MATERIAL VERSUS STONES OR DEBRIS GAS FOCI ALONG THE ANTERIOR ASPECT OF THE LEFT RENAL HIM FLORIAN IS POSSIBLE OUTSIDE THE RENAL COLLECTING SYSTEM. RAISING CONCERN FOR PERFORATION LEFT GREATER THAN RIGHT EMI NEPHRIC FAT STRANDING WITH PROBABLE SMALL AMOUNT OF LEFT PERINEPHRIC BLOOD UNDER DISTENDED BLADDER LIMITS EVALUATION SURROUNDING FAT STRANDING COULD BE SECONDARY TO CYSTITIS PLEASE CORRELATE WITH URINALYSIS SMALL GAS FOCI IN THE BLADDER COULD BE RELATED TO CYSTITIS VERSUS RECENT MANIPULATION. Assessment and Plan Assessment and plan (1) HENOK (acute kidney injury): Code(s): N17.9 - Acute kidney failure, unspecified Status: Acute Assessment and Plan: -CT ABDOMEN AND PELVIS WITHOUT IV CONTRAST SHOWED MILD BILATERAL HYDROURETERONEPHROSIS. NONSPECIFIC HYPERDENSE MATERIAL IN THE MID LEFT URETER QUESTIONABLE EXIT CREATING CONTRAST MATERIAL VERSUS STONES OR DEBRIS GAS FOCI ALONG THE ANTERIOR ASPECT OF THE LEFT RENAL HIM FLORIAN IS POSSIBLE OUTSIDE THE RENAL COLLECTING SYSTEM. RAISING CONCERN FOR PERFORATION LEFT GREATER THAN RIGHT EMI NEPHRIC FAT STRANDING WITH PROBABLE SMALL AMOUNT OF LEFT PERINEPHRIC BLOOD UNDER DISTENDED BLADDER LIMITS EVALUATION SURROUNDING FAT STRANDING COULD BE SECONDARY TO CYSTITIS PLEASE CORRELATE WITH URINALYSIS SMALL GAS FOCI IN THE BLADDER COULD BE RELATED TO CYSTITIS VERSUS RECENT MANIPULATION. -the patient did have IV fluids up until 3:00 a.m. this morning on 05/10/2025. The patient has no urine out of his Moser catheter. The patient has become very uncomfortable and is declining any further IV fluids. His IV fluids were disconnected and saline lock was kept at this time. -the patient had a cystoscopy, bilateral retrograde pyelography, bilateral ureteroscopy, and bladder biopsy performed on . -urology has been consulted. -continue with Rocephin. -UA with reflux was ordered. -continue with pain management. -daily BMP -is BUN 38 creatinine 4.82. GFR of 12. -patient is made NPO for possible procedure today. -may consider Nephrology consult if no improvement in his renal function. (2) History of bladder cancer: Code(s): Z85.51 - Personal history of malignant neoplasm of bladder Status: Acute Assessment and Plan: -the patient stated that he did have a TURP and he had chemo installation into the bladder in the past. He has had multiple cystoscopes and recently has had some abnormal cells leading to the most recent biopsy. (3) Mixed hyperlipidemia: Code(s): E78.2 - Mixed hyperlipidemia Status: Acute Assessment and Plan: -his rosuvastatin is on hold at this time. Quality VTE Prophylaxis VTE prophylaxis: mechanical ordered
--- NOTE | 2025-05-10 05:13 | PC.NURSE ---
patient bladder scan 0ml at admission, recheck at this hour 0514 shows 1ml
[2025-05-10] MEDS: HYDROmorphone HCL INJ (*CRX) 1 MG/ML SYR 0.5 MG IV PUSH (06:17)
[2025-05-10 06:23] LABS: Hematocrit 43.3 % (42.0-52.0); Hemoglobin 14.2 g/dL (14.0-18.0); Immature Granulocyte Percent A 0.4 % (0-0.5); Lymphocytes Absolute Auto 1.03 K/mm3 (0.9-3.2); Mean Corpuscular HGB Conc 32.8 g/dl (32-36); Mean Corpuscular Hemoglobin 29.1 pg (26-34); Mean Corpuscular Volume 88.7 fl (80-100); Nucleated Red Blood Cells Absolute Auto 0.000 K/mm3 (0.0-0.012); Nucleated Red Blood Cells Perc 0.0 % (0.0-0.2); Platelet Count Result 153 k/mm3 (150-375); Red Blood Count 4.88 M/mm3 (4.6-6.20); White Blood Count 12.7 K/mm3 (4.5-10.0)
[2025-05-10 06:45] LABS: Anion Gap 13 mmol/L (4-12); Blood Urea Nitrogen 45 mg/dL (9-20); Calcium 8.3 mg/dL (8.4-10.2); Carbon Dioxide 18 mmol/L (22-30); Chloride 102 mmol/L (98-107); Estimated CRCL calculation 13 ml/min; Estimated Glomerular Filt Rate 9; Glucose 116 mg/dL (65-110); Potassium 4.9 mmol/L (3.4-5.0); Sodium 133 mmol/L (137-145)
--- NOTE | 2025-05-10 06:59 | P.PNIM_ITS ---
Progress Note: A&P Assessment and Plan (1) HENOK (acute kidney injury): Code(s): N17.9 - Acute kidney failure, unspecified Status: Acute Assessment and Plan: - baseline Cr normal. Admit Cr 4.82-->6.19. - CT A/P with extraluminal gas adjacent to the left renal pelvis with fat stranding and fluid and contrast in the left perinephric space, consistent with left ureteral perforation - s/p cystoscopy, bilateral retrograde pyelography, bilateral ureteroscopy, and bladder biopsy performed on 05/08/25. - received IV fluids in ED, but was anuric so fluids were stopped. - urology consulted - s/p cystoscopy, found to have clots in distal left ureter, mild extravasation from left collecting system, bilateral ureteral stent placement 05/10 -continue with Rocephin. -UA with reflex ordered -continue with pain management. -daily BMP - patient now having good urine output s/p procedure (2) History of bladder cancer: Code(s): Z85.51 - Personal history of malignant neoplasm of bladder Status: Acute Assessment and Plan: -s/p TURP and he had chemo installation into the bladder in the past. He has had multiple cystoscopes and recently has had some abnormal cells leading to the most recent biopsy. (3) Mixed hyperlipidemia: Code(s): E78.2 - Mixed hyperlipidemia Status: Acute Assessment and Plan: -resume statin (4) Metabolic acidosis: Code(s): E87.20 - Acidosis, unspecified Status: Acute Assessment and Plan: - bicarb 18, anion gap 13 - likely due to renal failure. Management as above. - recheck BMP in AM Subjective Date/time seen: 05/10/25 06:59 Interval history: Patient seen and examined at bedside post procedure. He is doing well and without pain. Starkey draining large amounts of clear yellow urine. Family at bedside updated. Review of Systems Review of Systems: All systems reviewed & are unremarkable except as noted in HPI and below Exam Narrative: General: NAD Eyes: EOMI ENT: neck supple Cardiovascular: Regular rate and rhythm Respiratory: Clear to auscultation, respirations even and unlabored on RA Gastrointestinal: Soft, non tender Genitourinary: no suprapubic tenderness, starkey draining clear urine Musculoskeletal: No edema Skin: warm, dry Neuro: Alert. Psych: Mood appropriate Objective Data Vital Signs Vital Signs: Vital Signs - 24 hr 05/09/25 15:28 05/09/25 15:55 05/09/25 16:45 Temperature 97.6 F Pulse Rate 85 83 76 Respiratory Rate 16 18 18 Blood Pressure 142/73 H 165/93 H 145/91 H Pulse Oximetry 97 96 93 Oxygen Delivery Room Air 05/09/25 17:15 05/09/25 18:00 05/09/25 21:10 Temperature 98.2 F Pulse Rate 81 85 90 Respiratory Rate 18 18 Blood Pressure 132/92 H 143/88 H 165/86 H Pulse Oximetry 93 94 97 Oxygen Delivery 05/10/25 02:17 05/10/25 05:35 Temperature 97.4 F L 97.7 F Pulse Rate 90 89 Respiratory Rate 20 16 Blood Pressure 149/75 H 144/81 H Pulse Oximetry 95 95 Oxygen Delivery Intake/Output Intake/Output: Intake & Output 05/07/25 05/08/25 05/09/25 05/10/25 23:59 23:59 23:59 23:59 Intake Total 1000 Output Total 5 Balance 1000 -5 Meds/Results Medications: Active Medications Generic Name Dose Route Start Last Admin Trade Name Freq PRN Reason Stop Dose Admin Hydromorphone HCl 0.5 mg 05/09/25 21:58 05/10/25 06:17 Hydromorphone Hcl Inj (*Crx) 1 Mg/Ml Syr IV PUSH 0.5 mg Q4H PRN Administration Pain Rated 7-10 Ceftriaxone Sodium 1 gm/ 50 mls @ 100 mls/hr 05/10/25 22:00 Sodium Chloride IVPB Q24H CHARBEL Ondansetron HCl 4 mg 05/09/25 21:58 Ondansetron Inj 4 Mg/2 Ml Vial IV PUSH Q4H PRN Nausea Labs Labs: Laboratory Results - last 24 hr 05/09/25 05/10/25 17:05 06:10 WBC 10.8 H 12.7 H RBC 5.18 4.88 Hgb 14.9 14.2 Hct 45.6 43.3 MCV 88.0 88.7 MCH 28.8 29.1 MCHC 32.7 32.8 RDW 13.8 13.8 Plt Count 165 153 MPV 9.4 9.5 Immature Gran % (Auto) 0.3 0.4 Neut % (Auto) 80.7 H 84.7 H Lymph % (Auto) 11.3 L 8.1 L Clay % (Auto) 7.1 6.4 Eos % (Auto) 0.4 0.2 Baso % (Auto) 0.2 0.2 Lymph # (Auto) 1.22 1.03 Clay # (Auto) 0.8 H 0.8 H Eos # (Auto) 0.0 0.0 Baso # (Auto) 0.0 0.0 Abs Immat Gran (auto) 0.03 0.05 H Absolute Neuts (auto) 8.7 H 10.7 H Absolute Nucleated RBC 0.000 0.000 Nucleated RBC % 0.0 0.0 Sodium 135 L 133 L Potassium 4.6 4.9 Chloride 100 102 Carbon Dioxide 25 18 L Anion Gap 10 13 H BUN 38 H 45 H Creatinine 4.82 H 6.19 H Estim Creat Clear Calc 16 13 Estimated GFR 12 L 9 L Glucose 108 116 H Calcium 8.8 8.3 L Total Bilirubin 1.2 AST 26 ALT 13 Alkaline Phosphatase 74 Total Protein 7.6 Albumin 4.1 Quality VTE Prophylaxis VTE prophylaxis: mechanical ordered
--- NOTE | 2025-05-10 08:23 | P.CONUR_ITS ---
Assessment and Plan Assessment and plan (1) HENOK (acute kidney injury): Code(s): N17.9 - Acute kidney failure, unspecified Status: Acute Assessment and Plan: Etiology is unclear at this time. But given the significant rise in his creatinine in the appearance on CT scan as well as lack of urine production will proceed with cystoscopy, bilateral retrogrades, bilateral ureteral stent placement in the operating room. (2) Anuria: Code(s): R34 - Anuria and oliguria Status: Acute Assessment and Plan: above (3) Bladder cancer: Qualifiers: Bladder location: unspecified site Qualified Code(s): C67.9 - Malignant neoplasm of bladder, unspecified Code(s): C67.9 - Malignant neoplasm of bladder, unspecified Status: Acute Assessment and Plan: Post bladder biopsy with path revealing chronic cystitis. Washings from bilateral renal pelvises were benign. Urology Consult Note HPI Date Seen: 05/10/25 Time Seen: 08:23 Requesting Physician: Randi Petersen MD Primary Care Provider: Francois Christianson MD Consult Narrative Reason for consult: Anuria, HENOK post procedure Narrative: Gonzalo Norton is a 75 year old male with history of bladder carcinoma who was well known to my partner Dr. Moncada. He underwent a cystoscopy with bilateral retrogrades attempted bilateral ureteroscopy and bladder biopsy on . The operative note states that bilateral ureters were tight and only distal ureteroscopy was able to be performed. After the procedure patient states that he has simply been passing blood and no urine. He presented to the emergency room yesterday where his creatinine had gone from 0.98 up to a level of 4. Moser catheter was placed but again no urine was obtained. CT scan formal report is not back but the preliminary reveals some mild bilateral hydro with quite a bit of left perinephric stranding and question of perforation. Patient has been afebrile. His white count was up to 12,000 today and his creatinine has bumped to 6.19. Review of Systems 2 Review of Systems: All systems reviewed & are unremarkable except as noted in HPI and below PMFSH Past Medical History Medical History Colon cancer screening Skin lesion Obesity due to excess calories History of tobacco abuse BMI 36.0-36.9,adult Lumbar back sprain Bladder cancer Fatty liver disease, nonalcoholic Lumbar pain Bladder tumor BMI 37.0-37.9, adult Hematuria Kidney cysts Mixed hyperlipidemia Surgical History Surgical History H/O transurethral resection of prostate H/O cystoscopy Multiple History of colonoscopy with polypectomy Family History Family History Father Family history of aortic aneurysm Family history of chronic obstructive pulmonary disease Shingles Mother Carcinoma of colon Family history of malignant neoplasm of uterus Social History Social History Social History: and he had 2 children. One son has . He is retired from [employer]. Code status: Full code Smoking packs per day: 2 Smoking cigarettes per day: 40.0 Years smoked: 20 Smoking pack-years: 40.00 Smoking status: Former smoker Tobacco type: cigarettes Second hand tobacco smoke exposure: No Smoking end date: 04/21/90 Additional smoking assessment comments: STATES 1 1/2PK/DAY/20YRS/QUIT 1989 Alcohol intake: current Drinks per week: 1 Alcohol use details: ONE DRINK/MONTH Substance use: never Substance use type: does not use Do You Feel Safe in your Home?: Yes Lack of Transportation: No Lack of Food: Never True Current Housing: I Have Housing Concerned About Future Housing: No Difficulty Paying Gas/Electric Bills: No Difficulty Paying for Meds: No Currently Unemployed: No Education: High School Diploma/GED Difficulty w/ Childcare or Family Care: YES Living arrangements: with family Occupation/Education: retired Gender identity (if verbalized by the patient): Male Sexual Orientation (if Verbalized by the Patient): Straight or Heterosexual Spiritual care concerns: No Meds Home Medications and Allergies Home Medications ?Medication ?Instructions ?Recorded ?Confirmed ?Type rosuvastatin 5 mg tablet See Rx Instructions .Route 1 05/09/25 Rx .COMPLEX #90 tabs hydrocodone 5 mg-acetaminophen 325 1 - 2 tablet PO Q6H PRN pain #20 05/08/25 05/09/25 Rx mg tablet tabs Allergies Allergy/AdvReac Type Severity Reaction Status Date / Time No Known Allergies Allergy Verified 05/09/25 23:36 Vital Signs Vital Signs - 24 hr 05/09/25 15:28 05/09/25 15:55 05/09/25 16:45 Temperature 36.4 C Pulse Rate 85 83 76 Respiratory Rate 16 18 18 Blood Pressure 142/73 H 165/93 H 145/91 H Pulse Oximetry 97 96 93 Oxygen Delivery Room Air 05/09/25 17:15 05/09/25 18:00 05/09/25 21:10 Temperature 36.8 C Pulse Rate 81 85 90 Respiratory Rate 18 18 Blood Pressure 132/92 H 143/88 H 165/86 H Pulse Oximetry 93 94 97 Oxygen Delivery 05/10/25 02:17 05/10/25 05:35 Temperature 36.3 C L 36.5 C Pulse Rate 90 89 Respiratory Rate 20 16 Blood Pressure 149/75 H 144/81 H Pulse Oximetry 95 95 Oxygen Delivery Exam 2 Const: General: cooperative and no acute distress Resp: Effort & Inspection: normal respiratory effort Cardio: Rate: regular rate Rhythm: regular rhythm GI: GI Palp: Yes Soft to palpation Urinary Catheter: Urinary Catheter: other (No urine in catheter at this time) Results Labs 05/10/25 06:10 05/10/25 06:10 Labs: Short CBC 05/09/25 05/10/25 Range/Units 17:05 06:10 WBC 10.8 H 12.7 H (4.5-10.0) K/mm3 Hgb 14.9 14.2 (14.0-18.0) g/dL Hct 45.6 43.3 (42.0-52.0) % Plt Count 165 153 (150-375) k/mm3 [facility] 05/09/25 05/10/25 17:05 06:10 Sodium 135 L 133 L Potassium 4.6 4.9 Chloride 100 102 Carbon Dioxide 25 18 L BUN 38 H 45 H Creatinine 4.82 H 6.19 H Glucose 108 116 H Calcium 8.8 8.3 L Liver Function 05/09/25 Range/Units 17:05 Total Bilirubin 1.2 (0.2-1.3) mg/dL AST 26 (17-59) U/L ALT 13 (6-50) U/L Alkaline Phosphatase 74 (38-126) U/L Albumin 4.1 (3.5-5.1) g/dL
--- NOTE | 2025-05-10 08:29 | WPDHPUPDATE1 ---
History and Physical Update Update Date/Time: 05/10/25 08:29 History and Physical has been reviewed, including an updated exam of the patient. There are NO changes in the patient's condition. Risks, benefits, and alternatives have been discussed and questions answered. Patient agrees to proceed with procedure. Proceed with cystoscopy, bilateral retrogrades, bilateral ureteral stent placement possible clot evacuation
--- NOTE | 2025-05-10 08:42 | WPDANESEPPF ---
Anes - Initial Pre Proc Eval Procedure: Operation Date: 05/10/25 08:30 Proposed Procedures p Cystoscopy, Evacuation Bladder Clots - Tello Meeks MD Date/Time: 05/10/25 08:42 Surgeon: Randi Petersen MD Pre Op Diagnosis: Hematuria, HENOK Patient Data Age: 75 Gender: M Height: 1.78 m Weight: 126 kg Last Vital Signs Temp 36.5 C 05/10/25 05:35 Pulse 89 05/10/25 05:35 Resp 16 05/10/25 05:35 BP 144/81 H 05/10/25 05:35 Pulse Ox 95 05/10/25 05:35 O2 Del Method Room Air 05/09/25 15:28 Allergies Allergy/AdvReac Type Severity Reaction Status Date / Time No Known Allergies Allergy Verified 05/09/25 23:36 Home Medications ?Medication ?Instructions ?Recorded ?Confirmed ?Type rosuvastatin 5 mg tablet See Rx Instructions .Route 06/19/24 05/09/25 Rx .COMPLEX #90 tabs hydrocodone 5 mg-acetaminophen 325 1 - 2 tablet PO Q6H PRN pain #20 05/08/25 05/09/25 Rx mg tablet tabs Laboratory Tests 05/09/25 05/10/25 17:05 06:10 WBC 10.8 H K/mm3 12.7 H K/mm3 (4.5-10.0) (4.5-10.0) RBC 5.18 M/mm3 4.88 M/mm3 (4.6-6.20) (4.6-6.20) Hgb 14.9 g/dL 14.2 g/dL (14.0-18.0) (14.0-18.0) Hct 45.6 % 43.3 % (42.0-52.0) (42.0-52.0) MCV 88.0 fl 88.7 fl (80-100) (80-100) MCH 28.8 pg 29.1 pg (26-34) (26-34) MCHC 32.7 g/dl 32.8 g/dl (32-36) (32-36) RDW 13.8 % 13.8 % (11.5-14.5) (11.5-14.5) Plt Count 165 k/mm3 153 k/mm3 (150-375) (150-375) MPV 9.4 fl 9.5 fl (7.4-10.4) (7.4-10.4) Immature Gran % (Auto) 0.3 % 0.4 % (0-0.5) (0-0.5) Neut % (Auto) 80.7 H % 84.7 H % (45.5-73.1) (45.5-73.1) Lymph % (Auto) 11.3 L % 8.1 L % (18.3-44.2) (18.3-44.2) [place] % (Auto) 7.1 % 6.4 % (2.6-8.5) (2.6-8.5) Eos % (Auto) 0.4 % 0.2 % (0-4.4) (0-4.4) Baso % (Auto) 0.2 % 0.2 % (0.2-1.2) (0.2-1.2) Lymph # (Auto) 1.22 K/mm3 1.03 K/mm3 (0.9-3.2) (0.9-3.2) [place] # (Auto) 0.8 H K/mm3 0.8 H K/mm3 (0.1-0.6) (0.1-0.6) Eos # (Auto) 0.0 K/mm3 0.0 K/mm3 (0-0.3) (0-0.3) Baso # (Auto) 0.0 K/mm3 0.0 K/mm3 (0.0-0.1) (0.0-0.1) Abs Immat Gran (auto) 0.03 K/mm3 0.05 H K/mm3 (0.00-0.031) (0.00-0.031) Absolute Neuts (auto) 8.7 H K/mm3 10.7 H K/mm3 (1.3-6.7) (1.3-6.7) Absolute Nucleated RBC 0.000 K/mm3 0.000 K/mm3 (0.0-0.012) (0.0-0.012) Nucleated RBC % 0.0 % 0.0 % (0.0-0.2) (0.0-0.2) Sodium 135 L mmol/L 133 L mmol/L (137-145) (137-145) Potassium 4.6 mmol/L 4.9 mmol/L (3.4-5.0) (3.4-5.0) Chloride 100 mmol/L 102 mmol/L (98-107) (98-107) Carbon Dioxide 25 mmol/L 18 L mmol/L (22-30) (22-30) Anion Gap 10 mmol/L 13 H mmol/L (4-12) (4-12) BUN 38 H mg/dL 45 H mg/dL (9-20) (9-20) Creatinine 4.82 H mg/dL 6.19 H mg/dL (0.7-1.3) (0.7-1.3) Estim Creat Clear Calc 16 ml/min 13 ml/min Estimated GFR 12 L 9 L (59 - ) (59 - ) Glucose 108 mg/dL 116 H mg/dL (65-110) (65-110) Calcium 8.8 mg/dL 8.3 L mg/dL (8.4-10.2) (8.4-10.2) Total Bilirubin 1.2 mg/dL (0.2-1.3) AST 26 U/L (17-59) ALT 13 U/L (6-50) Alkaline Phosphatase 74 U/L (38-126) Total Protein 7.6 g/dL (6.3-8.2) Albumin 4.1 g/dL (3.5-5.1) Patient hx anesthesia problems: none Family hx anesthesia problems: none Results Review: All pre-operative results and documents have been reviewed as part of the pre-operative evaluation. [facility] Past Medical History Medical History Colon cancer screening Skin lesion Obesity due to excess calories History of tobacco abuse BMI 36.0-36.9,adult Lumbar back sprain Bladder cancer Fatty liver disease, nonalcoholic Lumbar pain Bladder tumor BMI 37.0-37.9, adult Hematuria Kidney cysts Mixed hyperlipidemia Surgical History Surgical History H/O transurethral resection of prostate H/O cystoscopy Multiple History of colonoscopy with polypectomy Family History Family History Father Family history of aortic aneurysm Family history of chronic obstructive pulmonary disease Shingles Mother Carcinoma of colon Family history of malignant neoplasm of uterus Social History Social History Social History: and he had 2 children. One son has . He is retired from [employer]. Code status: Full code Smoking packs per day: 2 Smoking cigarettes per day: 40.0 Years smoked: 20 Smoking pack-years: 40.00 Smoking status: Former smoker Tobacco type: cigarettes Second hand tobacco smoke exposure: No Smoking end date: 04/21/90 Additional smoking assessment comments: STATES 1 1/2PK/DAY/20YRS/QUIT 1989 Alcohol intake: current Drinks per week: 1 Alcohol use details: ONE DRINK/MONTH Substance use: never Substance use type: does not use Do You Feel Safe in your Home?: Yes Lack of Transportation: No Lack of Food: Never True Current Housing: I Have Housing Concerned About Future Housing: No Difficulty Paying Gas/Electric Bills: No Difficulty Paying for Meds: No Currently Unemployed: No Education: High School Diploma/GED Difficulty w/ Childcare or Family Care: YES Living arrangements: with family Occupation/Education: retired Gender identity (if verbalized by the patient): Male Sexual Orientation (if Verbalized by the Patient): Straight or Heterosexual Spiritual care concerns: No Anes - Eval Final PreProcedure Day of Procedure 05/10/25 08:42 Patient weight: obese Heart: regular rate and rhythm Lungs: decreased breath sounds Airway: Mallampati scale class II Neurological: alert and oriented Last oral intake: >/= 8 hours ASA classification: III Emergent: no Anesthetic plan: proceed Anesthesia type and monitoring: general LMA and standard monitoring Results Review: All pre-operative results and documents have been reviewed as part of the pre-operative evaluation. Informed Consent: The patient's anesthetic plan and its attendant risks and benefits were discussed with the patient/family/POA. Questions were solicited and answers provided to the satisfaction of the patient/family/POA.
[2025-05-10] MEDS: LIDOCAINE 2% GEL UROJET 10 ML PKG MUCOUS MEM (09:07)
--- NOTE | 2025-05-10 09:25 | W.PM.PROC2 ---
Procedure Note - Detailed Date of Procedure 05/10/25 Pre-op Diagnosis Hematuria, HENOK Post-op Diagnosis Same Procedure Performed Cystoscopy, bilateral retrogrades, bilateral ureteral stent placement 6 [place] contour, Moser catheter placement Surgeon Tello Meeks MD Anesthesia General Findings Clots in distal left ureter. Mild extravasation from left collecting system Description of Procedure Patient was taken to the operative suite correctly identified. Once anesthesia was obtained was placed in dorsal lithotomy position and prepped and draped usual sterile fashion. Twenty-two Niger[place] scope was inserted the bladder direct vision. Prostate was mildly obstructing. The bladder itself had no evidence of clots. The prior biopsied areas appeared to be healing well. The left ureteral orifice had clot protruding from the orifice. At this point time I placed a [place] in the right ureteral orifice and did a retrograde pyelogram. There was no discrete filling defects. Given his lack urine I did place a Sensor wire up into the kidney and placed a 6 [place] contour stent with the proximal end coiled in the renal pelvis and the distal in the bladder. I was unable to place the ureteral catheter into the left ureteral orifice due to the clot. I used a rigid ureteral scope and was able to manipulate the wire and the ureteral scope into the orifice. Patient had quite a bit of clot in the ureter. I was able to advance the scope past the clot. The wire was placed into the renal pelvis. I then placed a ureteral catheter over the wire and did a pyelogram. There was some mild extravasation. I replaced the wire and then placed a 6 [place] contour stent with again the proximal end coiled in the renal pelvis and the distal in the bladder. Bladder was drained. 2% viscous lidocaine was inserted into the urethra. Sixteen [place] scope was placed with 10 cc in the balloon. He has taken recovery stable condition. This completes dictation. Please send a copy of op note to my office Estimated Blood Loss 0 Drains Yes Packing No Pathology None sent Complications No immediate complications Condition Stable Disposition PACU
[2025-05-10] MEDS: LACTATED RINGERS 1,000 ML 30 ML IV CONT (09:26)
[2025-05-10 11:37] LABS: Add Urine Microscopic? YES; Appearance Urine Clear (Clear); Glucose Urine UA Negative (Negative); Leukocyte Esterase Ur 1+ LEU/UL (Negative); Nitrate Urine Negative (Negative); Non Pathogenic Casts 0-2; Specific Grav Ur 1.012 (1.001-1.035)
[2025-05-10 16:01] LABS: Anion Gap 8 mmol/L (4-12); Blood Urea Nitrogen 36 mg/dL (9-20); Calcium 8.5 mg/dL (8.4-10.2); Carbon Dioxide 23 mmol/L (22-30); Chloride 106 mmol/L (98-107); Estimated CRCL calculation 24 ml/min; Estimated Glomerular Filt Rate 19; Glucose 105 mg/dL (65-110); Potassium 5.2 mmol/L (3.4-5.0); Sodium 137 mmol/L (137-145)
[2025-05-10] MEDS: ACETAMINOPHEN 325 MG TABLET 650 MG PO (17:14)
[2025-05-10] MEDS: ROSUVASTATIN 5 MG TABLET PO (20:36)
[2025-05-10] MEDS: cefTRIAXone 1 GM in SODIUM CHLORIDE 0.9% IV 50 ML 100 ML IVPB (21:10)
[2025-05-11 01:57] VITALS: BP 147/93; PULSE 96; RESP 12; TEMP 36.8; O2SAT 98
[2025-05-11 06:23] VITALS: BP 119/74; PULSE 83; RESP 14; TEMP 36.6; O2SAT 95
[2025-05-11 07:20] LABS: Hematocrit 43.2 % (42.0-52.0); Hemoglobin 13.8 g/dL (14.0-18.0); Immature Granulocyte Percent A 0.2 % (0-0.5); Lymphocytes Absolute Auto 1.12 K/mm3 (0.9-3.2); Mean Corpuscular HGB Conc 31.9 g/dl (32-36); Mean Corpuscular Hemoglobin 28.6 pg (26-34); Mean Corpuscular Volume 89.6 fl (80-100); Nucleated Red Blood Cells Absolute Auto 0.000 K/mm3 (0.0-0.012); Nucleated Red Blood Cells Perc 0.0 % (0.0-0.2); Platelet Count Result 156 k/mm3 (150-375); Red Blood Count 4.82 M/mm3 (4.6-6.20); White Blood Count 8.0 K/mm3 (4.5-10.0)
[2025-05-11 07:52] LABS: Anion Gap 5 mmol/L (4-12); Blood Urea Nitrogen 27 mg/dL (9-20); Calcium 8.7 mg/dL (8.4-10.2); Carbon Dioxide 25 mmol/L (22-30); Chloride 108 mmol/L (98-107); Estimated CRCL calculation 57 ml/min; Estimated Glomerular Filt Rate 52; Glucose 104 mg/dL (65-110); Potassium 4.7 mmol/L (3.4-5.0); Sodium 138 mmol/L (137-145)
[2025-05-11 08:45] VITALS: BP 126/68
--- NOTE | 2025-05-11 11:03 | P.PNUR_ITS ---
Progress Note: A&P Assessment and Plan (1) HENOK (acute kidney injury): Code(s): N17.9 - Acute kidney failure, unspecified Status: Acute Assessment and Plan: Kidney function has improved significantly with good urine output. Will remove Moser catheter for voiding trial. If he is able to void can go home without his Moser. He should call the office tomorrow and touch base with Dr. Regan hunt to see when he would like to have his stents removed. I would imagine leaving them in at least a couple of weeks to let some of the clot resolve that was in his left distal ureter (2) Anuria: Code(s): R34 - Anuria and oliguria Status: Acute Assessment and Plan: Resolved Subjective Subjective Date/Time Seen: 05/11/25 11:03 Post Op day: 1 (Cysto with bilateral ureteral stent placements) Principal diagnosis: Hematuria with HENOK Interval history: Doing well post bilateral ureteral stent placement. Urine output has been good. White count is decreased to 8000. Creatinine is also down to 1.35. Patient is anxious to get home would like his Moser removed at this time. Review of Systems Review of Systems: All systems reviewed & are unremarkable except as noted in HPI and below Exam Const: General: cooperative and comfortable Resp: Effort & Inspection: normal respiratory effort Cardio: Rate: regular rate Rhythm: regular rhythm Urinary Catheter: Urinary Catheter: patent and draining and urine dark Objective Data Vital Signs Vital Signs: Vital Signs - 24 hr 05/10/25 11:15 05/10/25 11:45 05/10/25 12:45 Temperature 36.4 C 36.4 C 36.4 C Pulse Rate 92 94 103 H Respiratory Rate 18 18 18 Blood Pressure 116/80 116/60 112/67 Pulse Oximetry 95 94 93 Oxygen Delivery 05/10/25 20:00 05/10/25 22:08 05/10/25 22:11 Temperature 36.3 C L Pulse Rate 94 Respiratory Rate 18 Blood Pressure 111/59 L Pulse Oximetry 94 94 Oxygen Delivery Room Air Room Air 05/11/25 01:57 05/11/25 06:23 05/11/25 08:45 Temperature 36.8 C 36.6 C Pulse Rate 96 83 Respiratory Rate 12 14 Blood Pressure 147/93 H 119/74 126/68 Pulse Oximetry 98 95 Oxygen Delivery Intake/Output Intake/Output: Intake & Output 05/08/25 05/09/25 05/10/25 05/11/25 23:59 23:59 23:59 23:59 Intake Total 1000 370 120 Output Total 2698 9540 Balance 4206 -3134 -1873 Meds/Results Medications: Active Medications Generic Name Dose Route Start Last Admin Trade Name Freq PRN Reason Stop Dose Admin Acetaminophen 650 mg 05/10/25 15:52 05/10/25 17:14 Acetaminophen 325 Mg Tablet PO 650 mg Q6H PRN Administration Mild Pain (1-3) or Fever Hydrocodone Bitart/Acetaminophen 1 tab 05/10/25 11:31 Hydrocodone/Acetaminophen (*Crx) 5-325 Mg Tablet PO Q6H PRN Pain Rated 4-6 Fentanyl Citrate 25 mcg 05/10/25 08:43 Fentanyl Citrate Inj (*Crx) 100 Mcg/2 Ml Vial IV PUSH Q2M PRN Pain Hydromorphone HCl 0.5 mg 05/09/25 21:58 05/10/25 06:17 Hydromorphone Hcl Inj (*Crx) 1 Mg/Ml Syr IV PUSH 0.5 mg Q4H PRN Administration Pain Rated 7-10 Ceftriaxone Sodium 1 gm/ 50 mls @ 100 mls/hr 05/10/25 22:00 05/10/25 21:40 Sodium Chloride IVPB Infused Q24H CHARBEL Infusion Lactated Ringer's 1,000 mls @ 30 mls/hr 05/10/25 08:45 05/10/25 15:44 Lr - Lactated Ringers Iv IV CONT Not Given .Q24H CHARBEL Lactated Ringer's 1,000 mls @ 30 mls/hr 05/10/25 08:45 05/10/25 10:17 Lr - Lactated Ringers Iv IV CONT Infused .Q24H CHARBEL Infusion Miscellaneous Information 1 each 05/10/25 00:01 Please Add Pain Scale To Hydrocodone/Tylenol. XX 06/09/25 00:00 CLARIFY CHARBEL Ondansetron HCl 4 mg 05/09/25 21:58 Ondansetron Inj 4 Mg/2 Ml Vial IV PUSH Q4H PRN Nausea Ondansetron HCl 4 mg 05/10/25 08:43 Ondansetron Inj 4 Mg/2 Ml Vial IV PUSH ONCE PRN Nausea Rosuvastatin Calcium 5 mg 05/10/25 21:00 05/10/25 20:36 Rosuvastatin 5 Mg Tablet PO 5 mg QHS CHARBEL Administration Radiology Results: ITS Impressions Abdomen/Pelvis CT 05/10/25 08:15 IMPRESSION: 1. Extraluminal gas adjacent to the left renal pelvis with fat stranding and fluid and contrast in the left perinephric space, consistent with left ureteral perforation. Labs Labs: Laboratory Results - last 24 hr 05/10/25 05/10/25 05/11/25 11:22 15:37 06:40 WBC 8.0 RBC 4.82 Hgb 13.8 L Hct 43.2 MCV 89.6 MCH 28.6 MCHC 31.9 L RDW 14.0 Plt Count 156 MPV 10.0 Immature Gran % (Auto) 0.2 Neut % (Auto) 77.0 H Lymph % (Auto) 14.0 L [place] % (Auto) 7.9 Eos % (Auto) 0.7 Baso % (Auto) 0.2 Lymph # (Auto) 1.12 [place] # (Auto) 0.6 Eos # (Auto) 0.1 Baso # (Auto) 0.0 Abs Immat Gran (auto) 0.02 Absolute Neuts (auto) 6.2 Absolute Nucleated RBC 0.000 Nucleated RBC % 0.0 Sodium 137 138 Potassium 5.2 H 4.7 Chloride 106 108 H Carbon Dioxide 23 25 Anion Gap 8 5 BUN 36 H 27 H Creatinine 3.22 H 1.35 H Estim Creat Clear Calc 24 57 Estimated GFR 19 L 52 L Glucose 105 104 Calcium 8.5 8.7 Urine Color Yellow Urine Appearance Clear Urine pH 5.5 Ur Specific [place] 1.012 Urine Protein 1+ H Urine Glucose (UA) Negative Urine Ketones Trace H Ur Blood (Man) 3+ H Urine Nitrate Negative Urine Bilirubin Negative Urine Urobilinogen 0.2 Leukocyte Esterase Rfl 1+ H Urine RBC >100 H Urine WBC 6-10 H Ur Squamous Epith Cells None seen Urine Bacteria None seen Urine Casts 0-2
--- NOTE | 2025-05-11 13:40 | P.DS_ITS ---
DS: Admitting Diagnosis Discharge Date 05/11/25 Admitting Diagnosis - HENOK - obstructive uropathy - anuria DS: Summary Hospital Course Reason for hospitalization: - HENOK - obstructive uropathy - anuria Hospital Course: Patient is a 75-year-old male with history of bladder cancer, BPH s/p TURP. On 05/08/25 the patient underwent a cystoscopy, bilateral retrograde pyelogram, bilateral ureteroscopy, bladder biopsy. The patient stated that he noticed a large amount of blood after the procedure and was unable to urinate. In ED, WBC 10.8, Na 135, BUN 38, Cr 4.82, GFR 12. CT A/P with concern for left ureteral perforation. Patient found to be anuric. Patient admitted for further urologic evaluation. Upon admission, Cr trended up to 6.19 and patient remained anuric. He also developed a mild metabolic acidosis likely related to renal failure. Urology was consulted. Patient underwent cystoscopy and was found to have a large left urete ral clot and had bilateral ureteral stents placed as well as Moser placed. Patient immediately had urine output. His Cr subsequently rapidly improved to 1.35 and metabolic acidosis resolved. Urology recommended voiding trial and patient was able to urinate spontaneously. Patient was initially placed on Rocephin due to concerns for concomitant infection. UA showed 1+ LE and 6-10 WBCs. Discussed with urology who recommended ciprofloxacin x5 days on discharge. Will follow culture on discharge. Patient was instructed to call the urology office tomorrow to discuss following up with Dr. Moncada for stent removal. He was also instructed to obtain repeat BMP in 7 days. He was instructed to maintain adequate hydration and avoid NSAIDs. Patient was discharged home in stable condition. Strict return precautions discussed. Status at Discharge Functional status at discharge: independent ambulation Time Spent with Patient Time attestation: Total time spent providing and/or coordinating discharge services: Time spent: Greater than 30 minutes Exam Narrative: General: NAD Eyes: EOMI ENT: neck supple Cardiovascular: Regular rate and rhythm Respiratory: Clear to auscultation, respirations even and unlabored on RA Gastrointestinal: Soft, non tender Genitourinary: no suprapubic tenderness. Moser catheter draining blood tinged urine. Musculoskeletal: No edema Skin: warm, dry Neuro: Alert. Psych: Mood appropriate DS: Data Data Completed and Pending Completed studies during hospitalization: ITS Impressions Abdomen/Pelvis CT 05/10/25 08:15 IMPRESSION: 1. Extraluminal gas adjacent to the left renal pelvis with fat stranding and fluid and contrast in the left perinephric space, consistent with left ureteral perforation. Pending studies at discharge: Urine culture Labs on day of discharge: Labs from last 24 hours 05/11/25 05/10/25 06:40 15:37 WBC 8.0 RBC 4.82 Hgb 13.8 L Hct 43.2 MCV 89.6 MCH 28.6 MCHC 31.9 L RDW 14.0 Plt Count 156 MPV 10.0 Immature Gran % (Auto) 0.2 Neut % (Auto) 77.0 H Lymph % (Auto) 14.0 L [place] % (Auto) 7.9 Eos % (Auto) 0.7 Baso % (Auto) 0.2 Lymph # (Auto) 1.12 [place] # (Auto) 0.6 Eos # (Auto) 0.1 Baso # (Auto) 0.0 Abs Immat Gran (auto) 0.02 Absolute Neuts (auto) 6.2 Absolute Nucleated RBC 0.000 Nucleated RBC % 0.0 Sodium 138 137 Potassium 4.7 5.2 H Chloride 108 H 106 Carbon Dioxide 25 23 Anion Gap 5 8 BUN 27 H 36 H Creatinine 1.35 H 3.22 H Estim Creat Clear Calc 57 24 Estimated GFR 52 L 19 L Glucose 104 105 Calcium 8.7 8.5 Discharge Plan Discharge Attending physician on discharge: Mika Gonzales Consulting providers: Nallely Baeza; Tello Meeks Discharging Clinician: Nallely Baeza Anticipated Discharge Date/Time: 05/11/25 13:40 Patient Disposition: Home Activity: as tolerated Diet: regular Discharge Instructions: Take all medications as prescribed. Have your lab work rechecked in 5-7 days to recheck your kidney function. Follow-up with your primary care provider in one week. Call the urology office tomorrow to determine when they would like you to follow-up to have the stents removed. AVOID NSAIDs including ibuprofen, Advil, naproxen, Aleve as these can affect the kidney function. Return to the emergency department if you develop chest pain, shortness of breath, persistent fever >100.4, confusion, loss of consciousness, inability to urinate. Patient Instructions: Antibiotic Form, Ureteral Stent Placement (DC) Patient Language: Italian Stand Alone Forms: General Discharge Information Follow-up/Referrals: Francois Christianson MD [Primary Care Provider, Family Practice] - Call for Appointment Referral Note: 1 week Morgan Moncada MD [Physician, Urology] - Call for Appointment Referral Note: Call office tomorrow to determine when to follow-up to have stents removed Discharge Medications: New ciprofloxacin HCl [Cipro] 500 mg tablet 500 mg PO Q12H Qty: 10 0RF Continued rosuvastatin 5 mg tablet See Rx Instructions .ROUTE .COMPLEX Qty: 90 2RF Dose Instruction: TAKE 1 TABLET BY MOUTH AT BEDTIME Rx Instructions: TAKE 1 TABLET BY MOUTH AT BEDTIME hydrocodone-acetaminophen 5-325 mg tablet 1 - 2 tablet PO Q6H PRN (Reason: pain) Qty: 20 0RF Other Ambulatory Orders: Basic Metabolic Panel (Routine) Timeframe: 5 Days Location: Determined by Patient Ordered By: Nallely Baeza Date of admission: 05/10/25 08:15 Primary Care Provider: Francois Christianson Admitting Provider: Randi Petersen Attending physician on admission: Randi Petersen Condition: Stable
--- NOTE | 2025-05-13 11:28 | PC.NURSE ---
Urine cx shows no growth.
== END 2025-05-11 14:45 | disposition home or self-care (01) | DRG 660 ==
LOC: ANHED 16:25 → ANH3MEDSUR 22:34
PROVIDERS: Nurse Practitioner; Urology; Admitting Provider General Practice; Emergency Provider Emergency Medicine; PCP Family Medicine; Visit Provider Physician Assistant
PROC: 0TCB8ZZ Extirpation of Matter from Bladder, Via Natural or Artificial Opening Endoscopic (ICD-10-PCS; CPT 52001; principal; 2025-05-10 08:30)
DX: N17.9 Acute kidney failure, unspecified (principal); E87.21 Acute metabolic acidosis; N13.9 Obstructive and reflux uropathy, unspecified; N30.21 Other chronic cystitis with hematuria; N40.0 Benign prostatic hyperplasia without lower urinary tract symptoms; Z85.51 Personal history of malignant neoplasm of bladder; Z87.891 Personal history of nicotine dependence; K76.0 Fatty (change of) liver, not elsewhere classified; E78.2 Mixed hyperlipidemia; E66.9 Obesity, unspecified; Z68.39 Body mass index [BMI] 39.0-39.9, adult
CPT/HCPCS: 36415; 74176; 74420; 80048; 80053; 81001; 85025; 87040; 87086; 96361; 96374; 96375; 96376; 99285; A9270; C1758; C1769; C2617; G0378; J0696; J1171; J2270; J2405; J2704; J7030; J7120; Q9966